=== PATIENT | male | born 1955 | race Caucasian/White ===

== ENCOUNTER → 2016-06-17 | Outpatient (CLI) | payer BC ==
--- NOTE | 2016-06-17 16:37 | CR ---
EXAMINATION: Pelvis and left hip HISTORY: Pain COMPARISON: None TECHNIQUE: AP pelvis and 2 views of the left hip FINDINGS: Left total hip hardware is demonstrated with screw and plate fixation of the left ilium. C lips project over the left pelvis. Periarticular dystrophic calcifications are also noted adjacent t o the left hip. Otherwise no fracture or acute osseous abnormalities demonstrated. Early degenerativ e changes noted within the right hip. SI joints are symmetric. Mild to moderate degenerative changes within the lower lumbar spine. Bone mineralization appears normal. IMPRESSION: 1. Left hip and left ilium hardware noted without acute osseous abnormality.
--- NOTE | 2016-06-17 16:38 | CR ---
EXAMINATION: Right knee HISTORY: Artificial joint COMPARISON: Radiographs dated 07/19/2015 TECHNIQUE: 3 views FINDINGS/IMPRESSION: Right total knee hardware is demonstrated in stable position and alignment. The re is no fracture or acute osseous abnormality noted. Mild persistent postoperative soft tissue rodriguez ges are noted in the small residual joint effusion.
== END ==
LOC: MW.CHORTHO 08:05
PROVIDERS: ATTEND Orthopaedic Surgery
DX: M25.552 Pain in left hip (principal); Z96.651 Presence of right artificial knee joint
CPT/HCPCS: 73501-26-LT; 73501-LT; 73502-26-LT; 73502-LT; 73562-26-RT; 73562-RT

== ENCOUNTER 2017-02-24 09:41 | Day surgery (SDC) | payer BC ==
[~2017-02-24 09:41] MED LIST: Lactated Ringers 1,000 ML IV SCH; Lidocaine 2% 5 ML SDV ONE; Propofol 200 MG/20 ML SDV ONE; fentaNYL 100 MCG/2 ML SDV ONE
--- NOTE | 2017-02-24 11:14 | PCM.PREANE ---
Preanesthetic Assessment - Anesthesia/Transfusion/Family Hx Anesthesia History: Prior Anesthesia Without Reaction Family History of Anesthesia Reaction: No Transfusion History: Prior Transfusion Without Reaction Intubation History: Unknown - Review of Systems General: No Symptoms Pulmonary: No Symptoms Cardiovascular: No Symptoms Gastrointestinal: No Symptoms, Other (screening colonoscopy) Other: Reports: None - Physical Assessment NPO Status Date: 02/22/17 NPO Status Time: 22:00 O2 Sat by Pulse Oximetry: 98 Respiratory Rate: 14 Vital Signs: Last Vital Signs Temp 36.5 C 02/24/17 10:30 Pulse 57 L 02/24/17 10:30 Resp 14 02/24/17 10:30 BP 141/74 H 02/24/17 10:30 Pulse Ox 98 02/24/17 10:30 Height: 1.91 m Weight: 126.099 kg ASA Class: 2 Mental Status: Alert & Oriented x3 Airway Class: Mallampati = 2 Dentition: Reports: Bridge (permanent upper front) Thyro-Mental Finger Breadths: 3 Mouth Opening Finger Breadths: 3 ROM/Head Extension: Full Lungs: Clear to Auscultation, Normal Respiratory Effort Cardiovascular: Regular Rate, Regular Rhythm - Allergies Allergies/Adverse Reactions: Allergies Allergy/AdvReac Type Severity Reaction Status Date / Time No Known Allergies Allergy Verified 07/11/13 10:23 - Blood Blood Available: No - Anesthesia Plan Pre-Op Medication Ordered: None - Acknowledgements Anesthesia Type Planned: MAC Pt an Appropriate Candidate for the Planned Anesthesia: Yes Alternatives and Risks of Anesthesia Discussed w Pt/Guardian: Yes Pt/Guardian Understands and Agrees with Anesthesia Plan: Yes PreAnesthesia Questionnaire - Past Health History Medical/Surgical History: Denies Medical/Surgical History HEENT History: Reports: None Cardiovascular History: Reports: High Cholesterol, Hypertension Respiratory History: Reports: None Genitourinary History: Reports: None Musculoskeletal History: Reports: Arthritis Neurological History: Reports: None Psychiatric History: Reports: None Endocrine/Metabolic History: Reports: Obesity/BMI 30+ Hematologic History: Reports: Blood Transfusion(s) Immunologic History: Reports: None Oncologic (Cancer) History: Reports: Other (See Below) Other Oncologic History: precancerous skin Dermatologic History: Reports: None - Past Surgical History Head Surgeries/Procedures: Reports: None HEENT Surgical History: Reports: LASIK GI Surgical History: Reports: Bariatric Procedure Other GI Surgeries/Procedures: takes prilosec OTC due to having gastric bypass Musculoskeletal Surgical History: Reports: Hip Replacement (left), Knee Replacement (right), Shoulder Surgery - SUBSTANCE USE Smoking Status *Q: Current Every Day Smoker Tobacco Use Within Last Twelve Months: Cigarettes Second Hand Smoke Exposure: Yes Days Per Week of Alcohol Use: 2 Number of Drinks Per Day: 3 Total Drinks Per Week: 6 Recreational Drug Use History: Yes Recreational Drug Type: Reports: Marijuana/Hashish - HOME MEDS Home Medications: Home Meds atorvaSTATin [Lipitor] 20 mg PO DAILY 07/05/15 [History] Aspirin [[place] Aspirin] 81 mg PO DAILY 02/19/17 [History] Omeprazole 20 mg PO DAILY 02/19/17 [History] Triamterene/Hydrochlorothiazid [Triamterene-HCTZ 37.5-25 MG] 1 tab PO DAILY [History] amLODIPine/Benazepril [Lotrel 5-20 MG] 1 tab PO DAILY 02/19/17 [History] - CURRENT (IN HOUSE) MEDS Current Meds: Current Medications Lactated Ringer's (Ringers, Lactated) 1,000 mls @ 125 mls/hr IV ASDIRECTED SANDRA Last Admin: 02/24/17 10:43 Dose: 125 mls/hr Discontinued Medications Fentanyl (Sublimaze) Confirm Administered Dose 100 mcg .ROUTE .STK-MED ONE Stop: 02/24/17 07:30 Lidocaine (Xylocaine-Mpf 2%) Confirm Administered Dose 5 ml .ROUTE .STK-MED ONE Stop: 02/24/17 07:30 Propofol (Diprivan 20 Ml) Confirm Administered Dose 400 mg .ROUTE .STK-MED ONE Stop: 02/24/17 07:30
--- NOTE | 2017-02-24 13:40 | PCM.OPNOTE ---
- General Post-Op/Procedure Note Date of Surgery/Procedure: 02/24/17 Operative Procedure(s): colonoscopy w bx Findings: see dict [id number] Pre Op Diagnosis: scrn colonoscopy Post-Op Diagnosis: colon polyp Anesthesia Technique: Moderate Sedation Primary Surgeon: Jamar Curry Pathology: 3 mm sessile at 90 when scope withdrawn Complications: None Condition: Good Free Text/Narrative:: Intake & Output 02/23/17 02/24/17 02/24/17 22:59 06:59 14:59 Intake Total 1400 Balance 1400
[2017-02-24 13:42] VITALS: BP 104/65
--- NOTE | 2017-02-24 13:48 | PCM.POSTAN ---
POST ANESTHESIA ASSESSMENT - MENTAL STATUS Mental Status: Alert, Oriented - RESPIRATORY Respiratory Status: Respiratory Rate WNL, Airway Patent, O2 Saturation Stable - CARDIOVASCULAR CV Status: Pulse Rate WNL, Blood Pressure Stable - GASTROINTESTINAL GI Status: No Symptoms - POST OP HYDRATION Hydration Status: Adequate & Stable
--- NOTE | 2017-02-24 13:49 | PCM48HPAN ---
Post Anesthesia Note - EVALUATION WITHIN 48HRS OF ANESTHETIC Vital Signs in Normal Range: Yes Patient Participated in Evaluation: Yes Respiratory Function Stable: Yes Airway Patent: Yes Cardiovascular Function Stable: Yes Hydration Status Stable: Yes Pain Control Satisfactory: Yes Nausea and Vomiting Control Satisfactory: Yes Mental Status Recovered: Yes
--- NOTE | 2017-02-24 14:00 | OR ---
SURGEON: Jamar Curry MD DATE OF PROCEDURE: 02/24/2017 PREOPERATIVE DIAGNOSIS: Screening colonoscopy. POSTOPERATIVE DIAGNOSIS: Colon polyp. COMPLICATIONS: None. PROCEDURE PERFORMED: Colonoscopy with biopsy. FINDINGS: 1. The patient is easily sedated with MAINTENANCE MANAGER and Diprivan. The patient is soundly snoring. 2. The patient's bowel prep is left to be desirable. It is acceptable, but the patient has a large amount of opaque coating liquid stool, coating on the mucosa, and compromised study. So, this is a compromised study because of bowel prep. Colon was rather straight forward, cecum indicated by ileocecal fold, one-to-one indentation, and light immittance, appendiceal orifice. Mucosa examined upon scope pulling out with constant irrigation. There was a small 2-3 mm polyp at distance 90 when the scope pulling out. It was removed with cold biopsy forceps. The patient does not have diverticulosis, mass, growth, inflammation, stricture, ulceration, or bleeding. The patient has internal hemorrhoid and no external hemorrhoid. The patient would benefit from a repeat colonoscopy in 3 years from today or if the polyp pathology indicated otherwise or if clinically indicated otherwise. Three-year repeat colonoscopy because of the bowel prep and the colon polyp. PROCEDURE IN DETAIL: The patient was taken to the endoscopy room. A time out was called, patient identified, and procedure identified. Diprivan was then administrated. Patient went from awake to sleep, hearing doctor talking or door closing is normal. Perineum inspection and digital examination were then performed. A well- lubricated colonoscope was gently inserted through the rectum, advanced past the rectosigmoid junction, the descending colon, splenic flexure, transverse colon, hepatic flexure, ascending colon, arrived to the cecum. Cecum was identified as dictated in the finding. Then the scope was carefully withdrawn while attention was paid to the mucosal surface for any abnormality. Air will be sucked out during the scope withdrawal. At the rectum, retroflexed to examine any rectal diseases, fistula or hemorrhoids. During mucosal examination, polyp was noted; picture taken and biopsy performed. Patient tolerated procedure well. There were no intraoperative complications, and Dr. Curry was present throughout the whole procedure. BABATUNDE / OLY /[id number] LILIA
== END 2017-02-24 13:20 | disposition home or self-care (01) ==
LOC: MW.SDS 09:41
PROVIDERS: ATTEND Surgery
DX: Z12.11 Encounter for screening for malignant neoplasm of colon (principal); K63.5 Polyp of colon; K64.8 Other hemorrhoids; I10 Essential (primary) hypertension; E78.00 Pure hypercholesterolemia, unspecified; Z96.651 Presence of right artificial knee joint; Z79.82 Long term (current) use of aspirin; Z79.899 Other long term (current) drug therapy; F17.210 Nicotine dependence, cigarettes, uncomplicated; Z98.84 Bariatric surgery status
CPT/HCPCS: 45380; 88305; J3010; J7120; 00810; J2704

== ENCOUNTER 2019-04-04 18:15 | Inpatient (IN) | payer BC ==
--- NOTE | 2019-04-04 19:10 | CR ---
INDICATION: Fall TECHNIQUE: AP pelvis and two views left hip COMPARISON: None FINDINGS: Bones: Alignment is normal. No fractures. Heterotopic bone formation adjacent to the greater trochanter. Joint spaces: Left hip arthroplasty Soft tissues: Unremarkable. IMPRESSION: Negative. Dictated by Tyson Parr MD @ 04/04/2019 7:09:55 PM Dictated by: Tyson Parr MD @ 04/04/2019 19:09:59 (Electronically Signed)
[2019-04-04] MEDS ORDERED: HYDROmorphone 1 MG/ML Syringe IM ONE (19:32)
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
[2019-04-04] MEDS ORDERED: HYDROmorphone 1 MG/ML Syringe IVPUSH ONE (20:37)
[2019-04-04] MEDS: Sodium Chloride 0.9% 1,000 ML IV SCH (20:45)
[2019-04-04 23:05] LABS: BLOOD UREA NITROGEN,BUN 13 mg/dL (7.0-18.0); CARBON DIOXIDE,CO2 23.7 mmol/L (21.0-32.0); CHLORIDE,CL 102 mmol/L (98-107); GLUCOSE RANDOM 154 mg/dL (74-106); POTASSIUM,K 4.4 mmol/L (3.5-5.1); SODIUM,NA 137 mmol/L (136-148)
[2019-04-04] MEDS: Acetaminophen/HYDROcodone 325-5 MG Tab PO PRN (23:46)
[2019-04-05] MEDS: Acetaminophen/HYDROcodone 325-5 MG Tab PO PRN ×5 (04:39→23:08)
[2019-04-05] MEDS: Sodium Chloride 0.9% 1,000 ML IV SCH (07:05)
[2019-04-05] MEDS: Famotidine 20 MG Tab PO SCH (08:03)
[2019-04-05] MEDS: Aspirin 325 MG Tab PO SCH (08:03)
[2019-04-05] MEDS ORDERED: Hydrochlorothiazide/Triamterene 25-37.5 Tab PO SCH ×2 (09:00→14:33)
[2019-04-05] MEDS ORDERED: TRIAMTERENE PO SCH (11:15)
[2019-04-05] MEDS ORDERED: HCTZ PO SCH (11:15)
[2019-04-05] MEDS ORDERED: Non-Formulary Medication 1 Each (Amlodipine Besylate/Benazepril [Amlodipine-Benazepril 10- PO SCH (11:15)
[2019-04-05] MEDS: traMADol 50 MG Tab PO PRN (11:28)
[2019-04-05] MEDS: Amiodarone 200 MG Tab PO SCH ×2 (11:29→23:06)
[2019-04-05] MEDS: Metoprolol Tartrate 50 MG Tab PO SCH ×2 (11:30→23:06)
[2019-04-05] MEDS: Apixaban 5 MG Tab PO SCH ×2 (11:30→23:05)
[2019-04-05] MEDS ORDERED: Albuterol 8 GM Inhaler INH SCH (12:00)
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
[2019-04-05] MEDS: Cyclobenzaprine 10 MG Tab PO PRN (14:15)
[2019-04-05] MEDS: amLODIPine 5 MG Tab PO SCH (15:13)
[2019-04-05] MEDS: Hydrochlorothiazide/Triamterene 25-37.5 Tab PO SCH (15:14)
[2019-04-05] MEDS: Benazepril 10 MG Tab PO SCH (15:14)
[2019-04-06] MEDS: Acetaminophen/HYDROcodone 325-5 MG Tab PO PRN ×3 (04:09→15:15)
[2019-04-06] MEDS: Cyclobenzaprine 10 MG Tab PO PRN (06:26)
[2019-04-06] MEDS: Aspirin 325 MG Tab PO SCH (08:03)
[2019-04-06] MEDS: Benazepril 10 MG Tab PO SCH (08:04)
[2019-04-06] MEDS: amLODIPine 5 MG Tab PO SCH (08:04)
[2019-04-06] MEDS: Metoprolol Tartrate 50 MG Tab PO SCH ×2 (08:04→20:56)
[2019-04-06] MEDS: Famotidine 20 MG Tab PO SCH (08:05)
[2019-04-06] MEDS: Amiodarone 200 MG Tab PO SCH ×2 (08:05→20:57)
[2019-04-06] MEDS: Hydrochlorothiazide/Triamterene 25-37.5 Tab PO SCH (08:05)
[2019-04-06] MEDS: Apixaban 5 MG Tab PO SCH ×2 (08:05→20:56)
[2019-04-06] MEDS: traMADol 50 MG Tab PO PRN ×2 (10:06→20:57)
[2019-04-06] MEDS ORDERED: Ibuprofen 800 MG Tab PO SCH (10:30)
--- NOTE | 2019-04-06 13:21 | PCM.SN ---
- Free Text/Narrative Note: Ortho Note Patient is 63 year old male with left periprosthetic femoral shaft fracture below stem tip of left MAGGY. Minimally displaced. Discussed non-operative vs operative treatment of fracture. Given fracture is well aligned and surgery will NOT allow weight bearing, I have recommended non-operative management and patient and spouse agree. Patient shoulder be toe touch weight bearing for 8 weeks with walker/crutches. Flexeril and hydrocodone every 6 hours scheduled and stagger doses every 3 hours . I have recommended home PT after discharge and patient agrees. Plan discharge to home tomorrow after seeing PT. All questions answered.
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
[2019-04-06] MEDS: Cyclobenzaprine 10 MG Tab PO SCH (17:47)
[2019-04-07] MEDS: Cyclobenzaprine 10 MG Tab PO SCH ×4 (00:09→18:10)
[2019-04-07] MEDS: traMADol 50 MG Tab PO PRN ×4 (03:08→20:39)
--- NOTE | 2019-04-07 08:51 | PCM.CONSN ---
- General Info Date of Service: 04/07/19 Admission Dx/Problem (Free Text): Admission Diagnosis/Problem Admission Diagnosis/Problem Fracture of femur Subjective Update: Doing well this morning, no chest pain or SOB. reports pain to leg with movement and getting up. Denies signs of bleeding. Functional Status: Reports: Tolerating Diet, Urinating - Review of Systems General: Reports: No Symptoms HEENT: Reports: No Symptoms Pulmonary: Reports: No Symptoms. Denies: Shortness of Breath Cardiovascular: Reports: No Symptoms. Denies: Chest Pain Gastrointestinal: Reports: No Symptoms. Denies: Abdominal Pain, Nausea, Vomiting Musculoskeletal: Reports: Leg Pain Skin: Reports: No Symptoms Neurological: Reports: No Symptoms Psychiatric: Reports: No Symptoms - Patient Data Vitals - Most Recent: Last Vital Signs Temp 97.4 F 04/07/19 07:00 Pulse 96 04/07/19 07:00 Resp 18 04/07/19 07:00 BP 105/69 04/07/19 07:00 Pulse Ox 96 04/07/19 07:00 Weight - Most Recent: 136.078 kg I&O - Last 24 Hours: Intake & Output 04/06/19 04/07/19 04/07/19 22:59 06:59 14:59 Intake Total 1250 800 Output Total 1400 500 Balance -150 300 Med Orders - Current: Current Medications Hydrocodone Bitart/Acetaminophen ([place] 325-5 Mg) 1 tab PO Q4H PRN PRN Reason: Pain Last Admin: 04/06/19 15:15 Dose: 1 tab Amiodarone HCl (Cordarone) 200 mg PO BID [facility] Last Admin: 04/06/19 20:57 Dose: 200 mg Amlodipine Besylate (Norvasc) 10 mg PO DAILY [facility] Last Admin: 04/06/19 08:04 Dose: 10 mg Apixaban (Eliquis) 5 mg PO BID [facility] Last Admin: 04/06/19 20:56 Dose: 5 mg Benazepril HCl (Lotensin) 20 mg PO DAILY [facility] Last Admin: 04/06/19 08:04 Dose: 20 mg Cyclobenzaprine HCl (Flexeril) 10 mg PO QID [facility] Last Admin: 04/07/19 06:05 Dose: 10 mg Famotidine (Pepcid) 40 mg PO DAILY [facility] Last Admin: 04/06/19 08:05 Dose: 40 mg Metoprolol Tartrate (Lopressor) 50 mg PO BID [facility] Last Admin: 04/06/19 20:56 Dose: 50 mg Tramadol HCl (Ultram) 100 mg PO Q6H PRN PRN Reason: Pain Last Admin: 04/07/19 03:08 Dose: 100 mg Triamterene/HCTZ (Maxzide 25-37.5 Mg) 1 each PO DAILY [facility] Last Admin: 04/06/19 08:05 Dose: 1 each Discontinued Medications Hydrocodone Bitart/Acetaminophen ([place] 325-5 Mg) 1 tab PO Q3H PRN PRN Reason: Pain Last Admin: 04/05/19 08:03 Dose: 1 tab Albuterol (Ventolin Hfa) 0 gm INH Q6H [facility] Last Admin: 04/05/19 14:51 Dose: Not Given Aspirin (Aspirin) 325 mg PO DAILY [facility] Last Admin: 04/06/19 08:03 Dose: 325 mg Cyclobenzaprine HCl (Flexeril) 10 mg PO TID PRN PRN Reason: Spasms Last Admin: 04/06/19 06:26 Dose: 10 mg Hydromorphone HCl (Dilaudid) 1 mg IM ONETIME ONE Stop: 04/04/19 19:33 Last Admin: 04/04/19 19:40 Dose: 1 mg Hydromorphone HCl (Dilaudid) 1 mg IVPUSH ONETIME ONE Stop: 04/04/19 20:38 Last Admin: 04/04/19 20:48 Dose: 1 mg Sodium Chloride (Normal Saline) 1,000 mls @ 100 mls/hr IV ASDIRECTED [facility] Last Admin: 04/05/19 07:05 Dose: 100 mls/hr Ibuprofen (Motrin) 800 mg PO Q6H [facility] Last Admin: 04/06/19 10:38 Dose: 800 mg Non-Formulary Medication (Amlodipine Besylate/Benazepril [Amlodipine-Benazepril 10-20 Mg]) 1 each PO DAILY [facility] Last Admin: 04/05/19 14:30 Dose: Not Given Non-Formulary Medication (Hctz/Triamterene) 1 tab PO DAILY [facility] Last Admin: 04/05/19 14:30 Dose: Not Given Triamterene/HCTZ (Maxzide 25-37.5 Mg) 1 each PO DAILY [facility] Triamterene/HCTZ (Maxzide 25-37.5 Mg) 1 each PO DAILY [facility] Last Admin: 04/05/19 14:51 Dose: Not Given - Exam Quality Assessment: No: Supplemental Oxygen General: Alert, Oriented, Cooperative, No Acute Distress Lungs: Clear to Auscultation, Normal Respiratory Effort Cardiovascular: Regular Rate, No Murmurs, Irregular Rhythm. No: Tachycardia Extremities: Normal Inspection, No Pedal Edema, Normal Capillary Refill Neurological: No New Focal Deficit Psy/Mental Status: Alert, Normal Affect, Normal Mood Sepsis Event Note - Evaluation Sepsis Screening Result: No Definite Risk - Focused Exam Vital Signs: Vital Signs Temp Pulse Pulse Resp BP BP Pulse Ox 04/07/19 07:00 97.4 F 96 18 105/69 96 04/07/19 03:00 97.5 F 84 18 106/68 96 04/06/19 23:47 97.1 F 69 18 107/70 95 04/06/19 20:56 90 102/67 Date Exam was Performed: 04/07/19 Time Exam was Performed: 09:59 Consult PN Assessment/Plan Procedures: Procedures ASSAY OF PSA TOTAL (01/05/19) CAT SCAN FOLLOW-UP STUDY (03/13/17) COLONOSCOPY AND BIOPSY (02/24/17) ELECTRICAL STIMULATION (06/22/17) EMERGENCY DEPT VISIT (03/02/15) EMERGENCY DEPT VISIT (07/11/13) MRI JNT OF LWR EXTRE W/O DYE (06/01/15) PT EVAL LOW COMPLEX 20 MIN (06/01/17) PT EVALUATION (08/01/15) ROUTINE VENIPUNCTURE (01/05/19) RPR S/N/AX/GEN/TRNK 2.5CM/< (03/02/15) TDAP VACCINE 7 YRS/> IM (03/02/15) THER/PROPH/DIAG INJ SC/IM (07/11/13) THERAPEUTIC EXERCISES (07/14/17) TISSUE EXAM BY PATHOLOGIST (02/24/17) URINALYSIS AUTO W/SCOPE (11/22/18) VASOPNEUMATIC DEVICE THERAPY (06/01/17) X-RAY EXAM HIP UNI 1 VIEW (06/17/16) X-RAY EXAM HIP UNI 2-3 VIEWS (06/17/16) X-RAY EXAM KNEE 4 OR MORE (05/08/15) X-RAY EXAM OF KNEE 3 (06/17/16) X-RAY EXAM OF SHOULDER (08/25/17) (1) Femoral fracture SNOMED Code(s): 85261172 Code(s): S72.90XA - UNSP FRACTURE OF UNSP FEMUR, INIT ENCNTR FOR CLOSED FRACTURE Current Visit: Yes Qualifiers: Fracture type: closed (2) Fall SNOMED Code(s): 0747512, 498182511 Code(s): W19.XXXA - UNSPECIFIED FALL, INITIAL ENCOUNTER Current Visit: Yes (3) Atrial fibrillation SNOMED Code(s): 22856021 Code(s): I48.91 - UNSPECIFIED ATRIAL FIBRILLATION Current Visit: Yes (4) Anticoagulation adequate SNOMED Code(s): 844223575, 841078503 Code(s): Z79.01 - HALFWAY (CURRENT) USE OF ANTICOAGULANTS Current Visit: Yes Problem List Initiated/Reviewed/Updated: Yes Plan: This 63 year old male s/p fall with femur fracture and admitted for pain control 1. Femur fracture: Per Orthopedics 2. Atrial fibrillation: Stable, continue Amiodarone and Metoprolol. HR in 70- 80s. Regular to auscultation. No chest pain or SOB. Continue Eliquis as well. Has Cardiology Follow up next week in [place].
[2019-04-07] MEDS: Benazepril 10 MG Tab PO SCH (09:18)
[2019-04-07] MEDS: Apixaban 5 MG Tab PO SCH ×2 (09:18→20:39)
[2019-04-07] MEDS: Famotidine 20 MG Tab PO SCH (09:19)
[2019-04-07] MEDS: Amiodarone 200 MG Tab PO SCH ×2 (09:19→20:38)
[2019-04-07] MEDS: amLODIPine 5 MG Tab PO SCH (09:19)
[2019-04-07] MEDS: Hydrochlorothiazide/Triamterene 25-37.5 Tab PO SCH (09:19)
[2019-04-07] MEDS: Metoprolol Tartrate 50 MG Tab PO SCH ×2 (09:20→20:38)
--- NOTE | 2019-04-07 09:47 | PCM.SN ---
- Free Text/Narrative Note: S: Robert reports doing better at times, such as when he ambulated to the bathroom with PT yesterday (standby assistance with his walker), and had more difficulty getting OOB this morning with PT. States he has no pain at rest, but the addition of Flexeril has been beneficial in alleviating his acute muscle spasms that occur with transferring. Gore does not provide him any better pain relief, just makes him sleepy, and finds that taking Flexeril alternating with Ultram is beneficial. Has continued swelling to left thigh. Using Polar Care Ice therapy with relief. No calf erythema, pain or swelling to LE. Has been working with social work manager in regards to equipment needed upon discharge, and requests Rx for lift chair and toilet seat riser. Feels he does not need crutches or a wheelchair, and has walker at home already. O: Alert and orientated, in no acute distress. Afebrile. Laying in bed. Nursing present to reapply SCDs. PP2+ No pitting edema to LLE. Generalized swelling to left thigh. No ecchymosis. Sensation grossly intact to LLE. Polar care ice pad to left thigh. Easy respiratory rate. No N/V. A: Left periprosthetic hip fracture Acute pain with muscle spasms. P: Robert feels ready for discharge later today. Discussed routine use of Flexeril 10mg every 6 hours, supplementing either Ultram or Gore in between pending the level of his pain (which will depend on his activities at home). Medical equipment needed for discharge : toilet seat riser and lift chair. He will be discharged with home care for Physical therapy and nursing assessment of pain control. Also advised use of compression socks at home, on am/off hs, to prevent LE edema and as a DVT prophylaxis. Robert had no additional questions.
[2019-04-07] MEDS: Acetaminophen/HYDROcodone 325-5 MG Tab PO PRN (13:44)
[2019-04-08] MEDS: Cyclobenzaprine 10 MG Tab PO SCH ×3 (00:08→11:35)
[2019-04-08] MEDS: traMADol 50 MG Tab PO PRN ×3 (03:12→14:12)
--- NOTE | 2019-04-08 07:53 | PCM.SN ---
- Free Text/Narrative Note: S: Robert did not do well with PT yesterday afternoon with limited ambulation. He was changed from observation to inpatient. This morning, he states yesterday evening and last night went better. He was up in the chair for supper and is ready to call for standby assistance to get OOB for breakfast. He was up twice last night and ambulated to the bathroom. Lift Chair was delievered to his house last night. Afebrile. VSS. Pain is manageable with muscle relaxer, augmenting Ultram in between. With the progress overnight, he feels ready to be discharged home today after PT reviews steps today (he has 1 step to get into his house). O: Alert/orientated, in no acute distress. PP2+ Normal respiratory pattern. NV exam to LLE normal. Sensation grossly intact to LLE. A: Periprosthetic hip fracture, left Observation to inpatient admission for pain control P: Robert feels ready for discharge today. Continue routine use of muscle relaxer, with Ultram or Percocet augmented inbetween as needed for pain control. He will be discharged home with home care for continued strengthening.
[2019-04-08] MEDS: Famotidine 20 MG Tab PO SCH (08:49)
[2019-04-08] MEDS: Apixaban 5 MG Tab PO SCH (08:49)
[2019-04-08] MEDS: Amiodarone 200 MG Tab PO SCH (08:50)
[2019-04-08] MEDS: Hydrochlorothiazide/Triamterene 25-37.5 Tab PO SCH (08:50)
[2019-04-08] MEDS: Metoprolol Tartrate 50 MG Tab PO SCH ×2 (08:57→10:33)
[2019-04-08] MEDS: amLODIPine 5 MG Tab PO SCH ×2 (08:58→10:34)
[2019-04-08] MEDS: Benazepril 10 MG Tab PO SCH ×2 (08:58→10:32)
[2019-04-08 10:36] VITALS: BP 108/65; PULSE 105
--- NOTE | 2019-04-08 11:09 | PCM.CONSN ---
- General Info Date of Service: 04/08/19 Admission Dx/Problem (Free Text): Admission Diagnosis/Problem Admission Diagnosis/Problem Fracture of femur, LEFT periprosthetic hip fracture Subjective Update: Reports doing well this morning, hoping for home later today. No chest pain or SOB. Functional Status: Reports: Pain Controlled, Tolerating Diet - Review of Systems General: Reports: No Symptoms. Denies: Weakness, Fatigue HEENT: Reports: No Symptoms. Denies: Sore Throat, Visual Changes Pulmonary: Reports: No Symptoms. Denies: Shortness of Breath Cardiovascular: Reports: No Symptoms. Denies: Chest Pain Gastrointestinal: Reports: No Symptoms. Denies: Abdominal Pain, Nausea, Vomiting Genitourinary: Reports: No Symptoms. Denies: Dysuria, Frequency Skin: Reports: No Symptoms Neurological: Reports: No Symptoms Psychiatric: Reports: No Symptoms - Patient Data Vitals - Most Recent: Last Vital Signs Temp 98.9 F 04/08/19 07:15 Pulse 105 H 04/08/19 10:33 Resp 16 04/08/19 07:15 BP 108/65 04/08/19 10:34 Pulse Ox 96 04/08/19 07:15 Weight - Most Recent: 136.078 kg I&O - Last 24 Hours: Intake & Output 04/07/19 04/08/19 04/08/19 22:59 06:59 14:59 Intake Total 2300 500 Output Total 1300 250 Balance 1000 250 Med Orders - Current: Current Medications Hydrocodone Bitart/Acetaminophen ([place]onda 325-5 Mg) 1 tab PO Q4H PRN PRN Reason: Pain Last Admin: 04/07/19 13:44 Dose: 1 tab Amiodarone HCl (Cordarone) 200 mg PO BID [facility] Last Admin: 04/08/19 08:50 Dose: 200 mg Amlodipine Besylate (Norvasc) 10 mg PO DAILY [facility] Last Admin: 04/08/19 10:34 Dose: 10 mg Apixaban (Eliquis) 5 mg PO BID [facility] Last Admin: 04/08/19 08:49 Dose: 5 mg Benazepril HCl (Lotensin) 20 mg PO DAILY [facility] Last Admin: 04/08/19 10:32 Dose: 20 mg Cyclobenzaprine HCl (Flexeril) 10 mg PO QID [facility] Last Admin: 04/08/19 06:08 Dose: 10 mg Famotidine (Pepcid) 40 mg PO DAILY [facility] Last Admin: 04/08/19 08:49 Dose: 40 mg Metoprolol Tartrate (Lopressor) 50 mg PO BID [facility] Last Admin: 04/08/19 10:33 Dose: 50 mg Tramadol HCl (Ultram) 100 mg PO Q6H PRN PRN Reason: Pain Last Admin: 04/08/19 08:51 Dose: 100 mg Triamterene/HCTZ (Maxzide 25-37.5 Mg) 1 each PO DAILY [facility] Last Admin: 04/08/19 08:50 Dose: 1 each Discontinued Medications Hydrocodone Bitart/Acetaminophen ([place] 325-5 Mg) 1 tab PO Q3H PRN PRN Reason: Pain Last Admin: 04/05/19 08:03 Dose: 1 tab Albuterol (Ventolin Hfa) 0 gm INH Q6H [facility] Last Admin: 04/05/19 14:51 Dose: Not Given Aspirin (Aspirin) 325 mg PO DAILY [facility] Last Admin: 04/06/19 08:03 Dose: 325 mg Cyclobenzaprine HCl (Flexeril) 10 mg PO TID PRN PRN Reason: Spasms Last Admin: 04/06/19 06:26 Dose: 10 mg Hydromorphone HCl (Dilaudid) 1 mg IM ONETIME ONE Stop: 04/04/19 19:33 Last Admin: 04/04/19 19:40 Dose: 1 mg Hydromorphone HCl (Dilaudid) 1 mg IVPUSH ONETIME ONE Stop: 04/04/19 20:38 Last Admin: 04/04/19 20:48 Dose: 1 mg Sodium Chloride (Normal Saline) 1,000 mls @ 100 mls/hr IV ASDIRECTED [facility] Last Admin: 04/05/19 07:05 Dose: 100 mls/hr Ibuprofen (Motrin) 800 mg PO Q6H [facility] Last Admin: 04/06/19 10:38 Dose: 800 mg Non-Formulary Medication (Amlodipine Besylate/Benazepril [Amlodipine-Benazepril 10-20 Mg]) 1 each PO DAILY [facility] Last Admin: 04/05/19 14:30 Dose: Not Given Non-Formulary Medication (Hctz/Triamterene) 1 tab PO DAILY [facility] Last Admin: 04/05/19 14:30 Dose: Not Given Triamterene/HCTZ (Maxzide 25-37.5 Mg) 1 each PO DAILY [facility] Triamterene/HCTZ (Maxzide 25-37.5 Mg) 1 each PO DAILY [facility] Last Admin: 04/05/19 14:51 Dose: Not Given - Exam General: Alert, Oriented, Cooperative, No Acute Distress Lungs: Clear to Auscultation, Normal Respiratory Effort Cardiovascular: Regular Rate, Irregular Rhythm GI/Abdominal Exam: Normal Bowel Sounds, Soft, Non-Tender Neurological: No New Focal Deficit Psy/Mental Status: Alert, Normal Affect, Normal Mood Sepsis Event Note - Evaluation Sepsis Screening Result: No Definite Risk - Focused Exam Vital Signs: Vital Signs Temp Pulse Pulse Resp BP BP Pulse Ox 04/08/19 10:34 108/65 04/08/19 10:33 105 H 108/65 04/08/19 10:32 108/65 04/08/19 08:58 115/62 04/08/19 08:57 122 H 115/62 04/08/19 07:15 98.9 F 92 16 111/72 96 04/08/19 03:00 97.1 F 86 18 97/67 96 Date Exam was Performed: 04/08/19 Time Exam was Performed: 11:07 Consult PN Assessment/Plan Procedures: Procedures ASSAY OF PSA TOTAL (01/05/19) CAT SCAN FOLLOW-UP STUDY (03/13/17) COLONOSCOPY AND BIOPSY (02/24/17) ELECTRICAL STIMULATION (06/22/17) EMERGENCY DEPT VISIT (03/02/15) EMERGENCY DEPT VISIT (07/11/13) MRI JNT OF LWR EXTRE W/O DYE (06/01/15) PT EVAL LOW COMPLEX 20 MIN (06/01/17) PT EVALUATION (08/01/15) ROUTINE VENIPUNCTURE (01/05/19) RPR S/N/AX/GEN/TRNK 2.5CM/< (03/02/15) TDAP VACCINE 7 YRS/> IM (03/02/15) THER/PROPH/DIAG INJ SC/IM (07/11/13) THERAPEUTIC EXERCISES (07/14/17) TISSUE EXAM BY PATHOLOGIST (02/24/17) URINALYSIS AUTO W/SCOPE (11/22/18) VASOPNEUMATIC DEVICE THERAPY (06/01/17) X-RAY EXAM HIP UNI 1 VIEW (06/17/16) X-RAY EXAM HIP UNI 2-3 VIEWS (06/17/16) X-RAY EXAM KNEE 4 OR MORE (05/08/15) X-RAY EXAM OF KNEE 3 (06/17/16) X-RAY EXAM OF SHOULDER (08/25/17) (1) Femoral fracture SNOMED Code(s): 87984714 Code(s): S72.90XA - UNSP FRACTURE OF UNSP FEMUR, INIT ENCNTR FOR CLOSED FRACTURE Current Visit: Yes Qualifiers: Fracture type: closed (2) Fall SNOMED Code(s): 0497774, 346116583 Code(s): W19.XXXA - UNSPECIFIED FALL, INITIAL ENCOUNTER Current Visit: Yes (3) Atrial fibrillation SNOMED Code(s): 48063676 Code(s): I48.91 - UNSPECIFIED ATRIAL FIBRILLATION Current Visit: Yes (4) Anticoagulation adequate SNOMED Code(s): 401634030, 180857796 Code(s): Z79.01 - LONG-TERM (CURRENT) USE OF ANTICOAGULANTS Current Visit: Yes Problem List Initiated/Reviewed/Updated: Yes Plan: This 63 year old male s/p fall with femur fracture and admitted for pain control 1. Femur fracture: Per Orthopedics 2. Atrial fibrillation: Stable, continue Amiodarone and Metoprolol. HR in 70- 80s. Regular to auscultation. No chest pain or SOB. Continue Eliquis as well. Has Cardiology Follow up next week in [place].
[2019-04-08] MEDS: Acetaminophen/HYDROcodone 325-5 MG Tab PO PRN (11:35)
--- NOTE | 2019-04-08 12:45 | PCM.SN ---
- Free Text/Narrative Note: Ortho Note Pain management improved. Cleared by PT for discharge. Has 1 step into home and then on one level. I recommend building small ramp YONATHAN and he thinks that can be done. PT will see him again this afternoon and then he should be ready for DC. DC orders and prescriptions ready. Follow-up with me week of April 18-.
== END 2019-04-08 15:10 | disposition home health service (06) | DRG 340 ==
LOC: MW.ED 18:15 → MW.MS 21:39 → OBSVTOIN 04-07 17:16 → MW.MS 04-07 17:18
PROVIDERS: ADMIT Orthopaedic Surgery; ATTEND Orthopaedic Surgery
DX: S72.112A Displaced fracture of greater trochanter of left femur, initial encounter for closed fracture (principal); M97.02XA Periprosthetic fracture around internal prosthetic left hip joint, initial encounter; W00.0XXA Fall on same level due to ice and snow, initial encounter; Z96.642 Presence of left artificial hip joint; I48.91 Unspecified atrial fibrillation; E78.00 Pure hypercholesterolemia, unspecified; I10 Essential (primary) hypertension; M17.9 Osteoarthritis of knee, unspecified; E66.9 Obesity, unspecified; Z96.659 Presence of unspecified artificial knee joint; Z79.82 Long term (current) use of aspirin; Z87.891 Personal history of nicotine dependence; Z79.01 Long term (current) use of anticoagulants
CPT/HCPCS: 36415; 73502-26-LT; 73502-LT; 80053; 85025; 93005; 97162-GP; 97530-GP; 99284-25; A9270-GY; J1170; J7030

== ENCOUNTER 2019-04-13 11:40 | Emergency (ER) | payer BC ==
[2019-04-13 13:17] VITALS: BP 124/90; PULSE 102
--- NOTE | 2019-04-13 13:32 | CT ---
Head CT Technique: Multiple axial sections through the brain were obtained. Intravenous contrast was not utilized. Comparison: No previous intracranial imaging is available. Findings: Ventricles along with basal cisterns and sulci over convexities are mildly prominent. No abnormal parenchymal densities are seen. No evidence of intracranial hemorrhage. No midline shift or mass effect is seen. Bone window settings were reviewed. No acute calvarial abnormality. Visualized mastoid sinuses are clear. Small retention cyst is noted within the inferior right maxillary sinus measuring 1 cm. Other visualized sinuses show nothing acute. Impression: 1. Mild generalized atrophy. Incidental sinus finding. 2. Nothing acute is appreciated on noncontrast head CT exam. Diagnostic code #2 This report was dictated in [place] Standard Time
[2019-04-13 13:50] LABS: BLOOD UREA NITROGEN,BUN 16 mg/dL (7.0-18.0); CARBON DIOXIDE,CO2 26.1 mmol/L (21.0-32.0); CHLORIDE,CL 97 mmol/L (98-107); GLUCOSE RANDOM 91 mg/dL (74-106); SODIUM,NA 137 mmol/L (136-148)
[2019-04-13] MEDS ORDERED: Acetaminophen 325 MG Tab PO ONE (13:57)
[2019-04-13] MEDS ORDERED: Potassium Chloride 10% 20 MEQ/15 ML Soln 30 ML UD Cup PO ONE (14:04)
--- NOTE | 2019-04-13 14:57 | EDM.PDOCBH ---
ED [facility] GENERAL MEDICAL PROBLEM - General Chief Complaint: Behavioral/Psych Stated Complaint: HALLUCINATIONS/PAIN Time Seen by Provider: 04/13/19 14:56 Source of Information: Reports: Patient, Family History Limitations: Reports: No Limitations - History of Present Illness INITIAL COMMENTS - FREE TEXT/NARRATIVE: Patient is a 63-year-old male with a past medical history of hypertension, obesity, recent femur fracture presenting with a chief complaint of hallucinations. Per the patient and his , he has been in experiencing intermittent hallucinations for the past week or 2. Patient has experienced audio, visual, tactile hallucinations and some episodic confusion. There is an episode today where he experienced a large beetle crawling underneath his big toe. The has been there for some of his hallucinations and is tried to help throat however there does not seem to be a clear-cut cause of his hallucinations. His only new medication is cyclobenzaprine which was stopped 2 days ago after concerns that they may have been causing his hallucinations. Otherwise, he patient has not been ill, experiencing fevers, headache, head injury, or any other concerns. His only other main complaint is he does experience intermittent severe left hip pain related to his fracture which is treated with hydrocodone. In addition to that documented in the HPI above, the additional ROS was obtained : Constitutional: Denies fevers or chills Eyes: Denies vision changes ENMT: Denies sore throat CV: Denies chest pain Resp: Denies SOB GI: Denies vomiting or diarrhea : Denies painful urination MSK: Denies recent trauma Skin: Denies new rashes Neuro: Denies new numbness or tingling or weakness Endocrine: Denies unexpected weight loss Heme: Denies bleeding disorders I have reviewed the triage vital signs Const: Well nourished, well developed, appears stated age Eyes: PERRL, no conjunctival injection HENT: NCAT, Neck supple without meningismus CV: RRR, Warm, well-perfused extremities RESP: CTAB, Unlabored respiratory effort GI: soft, non-tender, non-distended, no masses MSK: No gross deformities appreciated Skin: Warm, dry. No rashes Neuro: Alert, billboard poster II-XII grossly intact. Sensation and motor function of extremities grossly intact. Psych: Appropriate mood and affect Assessment and plan Patient is a 63-year-old male who presents with a chief complaint of auditory and visual hallucinations. Patient had thorough metabolic, toxic, and neurologic, psych psychiatric work-up. Considered in differential for electrolyte abnormalities and toxins. Lab tests were within normal limits. Patient had normal neurologic exam and was not hallucinating while in the emergency department. Also under consideration was meningitis and encephalitis , however given the patient's lack of fever, elevated white count, meningeal signs is much less likely that this is the case. Patient also evaluated psychiatrically and does not endorse any symptoms consistent with psychosis or being a danger to himself or anyone else. It is noted, the patient has been recently stopped on cyclobenzaprine which in rare cases can cause hallucinations and confusion. At this time, the patient has normal mental status and no evidence of emergent cause of these hallucinations, patient will be referred to outpatient follow-up and instructed to stop taking cyclobenzaprine and to return to the emergency department immediately for high fevers, unresolved hallucinations, any other concerns. Patient and agree with plan. Russians were addressed and answered at time of discharge. Left Leg Pain Score (Numeric/FACES): 8 - Related Data Allergies Allergy/AdvReac Type Severity Reaction Status Date / Time No Known Allergies Allergy Verified 04/13/19 11:56 Home Meds: Home Meds atorvaSTATin [Lipitor] 20 mg PO DAILY 07/05/15 [History] Aspirin [[place] Aspirin EC] 81 mg PO DAILY 02/19/17 [History] Triamterene/Hydrochlorothiazid [Triamterene-HCTZ 37.5-25 MG] 1 tab PO DAILY [History] Amiodarone [Cordarone] 200 mg PO BID 04/05/19 [History] Apixaban [Eliquis] 5 mg PO BID 04/05/19 [History] Famotidine [Pepcid] 40 mg PO DAILY tablet 04/05/19 [Rx] Metoprolol Tartrate 50 mg PO BID 04/05/19 [History] amLODIPine Besylate/Benazepril [Amlodipine-Benazepril 10-20 mg] 1 each PO DAILY 04/05/19 [History] Benazepril [Lotensin] 20 mg PO DAILY tablet 04/07/19 [Rx] HCTZ/Triamterene [Maxzide 25-37.5 MG] 1 each PO DAILY tablet 04/07/19 [Rx] amLODIPine [Norvasc] 10 mg PO DAILY tablet 04/07/19 [Rx] traMADol [Ultram] 100 mg PO Q6H PRN #60 tablet 04/07/19 [Rx] Past Medical History - Past Health History Medical/Surgical History: Denies Medical/Surgical History HEENT History: Reports: None Cardiovascular History: Reports: Afib, High Cholesterol, Hypertension Respiratory History: Reports: None Gastrointestinal History: Reports: Other (See Below) Genitourinary History: Reports: None Musculoskeletal History: Reports: Arthritis, Other (See Below) Other Musculoskeletal History: shoulder and knee arthitis Neurological History: Reports: None Psychiatric History: Reports: None Endocrine/Metabolic History: Reports: Obesity/BMI 30+ Hematologic History: Reports: Blood Transfusion(s) Immunologic History: Reports: None Oncologic (Cancer) History: Reports: Other (See Below) Other Oncologic History: precancerous skin Dermatologic History: Reports: Other (See Below) Other Dermatologic History: suspicious mole removal - Infectious Disease History Infectious Disease History: Reports: Chicken Pox - Past Surgical History Head Surgeries/Procedures: Reports: None HEENT Surgical History: Reports: LASIK GI Surgical History: Reports: Bariatric Procedure Other GI Surgeries/Procedures: takes prilosec OTC due to having gastric bypass Musculoskeletal Surgical History: Reports: Hip Replacement, Knee Replacement, Shoulder Surgery Dermatological Surgical History: Reports: Skin Biopsy Social & Family History - Family History Family Medical History: Noncontributory Endocrine/Metabolic: Reports: Diabetes, type II Other Endocrine/Metabolic Family History: Maternal side of [facility] family Oncologic: Reports: Lung Other Oncologic Family History: Paternal - Tobacco Use Smoking Status *Q: Former Smoker Used Tobacco, but Quit: Yes Month/Year Tobacco Last Used: 2018 - Caffeine Use Caffeine Use: Reports: None - Recreational Drug Use Recreational Drug Use: No ED ROS GENERAL - Review of Systems Review Of Systems: See Below ED EXAM, BEHAVIORAL HEALTH - Physical Exam Exam: See Below COURSE, BEHAVIORAL HEALTH COMP - Course Vital Signs: Last Vital Signs Temp 36.5 C 04/13/19 11:59 Pulse 102 H 04/13/19 13:17 Resp 20 04/13/19 11:59 BP 124/90 04/13/19 13:17 Pulse Ox 97 04/13/19 13:17 Orders, Labs, Meds: Laboratory Tests 01/08/20 01/08/20 01/08/20 Range/Units 13:12 13:12 13:14 WBC 8.96 (4.0-11.0) K/uL RBC 4.21 L (4.50-5.90) M/uL Hgb 13.4 (13.0-17.0) g/dL Hct 39.4 (38.0-50.0) % MCV 93.6 (80.0-98.0) fL MCH 31.8 (27.0-32.0) pg MCHC 34.0 (31.0-37.0) g/dL RDW Std Deviation 45.8 (28.0-62.0) fl RDW Coeff of Malena 13 (11.0-15.0) % Plt Count 340 (150-400) K/uL MPV 9.60 (7.40-12.00) fL Neut % (Auto) 67.6 (48.0-80.0) % Lymph % (Auto) 15.5 L (16.0-40.0) % [place] % (Auto) 16.1 H (0.0-15.0) % Eos % (Auto) 0.6 (0.0-7.0) % Baso % (Auto) 0.2 (0.0-1.5) % Neut # (Auto) 6.1 H (1.4-5.7) K/uL Lymph # (Auto) 1.4 (0.6-2.4) K/uL [place] # (Auto) 1.4 H (0.0-0.8) K/uL Eos # (Auto) 0.1 (0.0-0.7) K/uL Baso # (Auto) 0.0 (0.0-0.1) K/uL Nucleated RBC % 0.0 /100WBC Nucleated RBCs # 0 K/uL Sodium (136-148) mmol/L Potassium (3.5-5.1) mmol/L Chloride (98-107) mmol/L Carbon Dioxide (21.0-32.0) mmol/L BUN (7.0-18.0) mg/dL Creatinine (0.8-1.3) mg/dL Est Cr Clr Drug Dosing mL/min Estimated GFR (MDRD) ml/min Glucose (74-106) mg/dL Calcium (8.5-10.1) mg/dL Total Bilirubin (0.2-1.0) mg/dL AST (15-37) IU/L ALT (14-63) IU/L Alkaline Phosphatase (46-116) U/L Ammonia (19-54) ug/dL Total Protein (6.4-8.2) g/dL Albumin (3.4-5.0) g/dL Globulin (2.6-4.0) g/dL Albumin/Globulin Ratio (0.9-1.6) Urine Color YELLOW Urine Appearance CLEAR Urine pH 6.5 (5.0-8.0) Ur Specific [place] 1.015 (1.001-1.035) Urine Protein NEGATIVE (NEGATIVE) mg/dL Urine Glucose (UA) NEGATIVE (NEGATIVE) mg/dL Urine Ketones 15 H (NEGATIVE) mg/dL Urine Occult Blood NEGATIVE (NEGATIVE) Urine Nitrite NEGATIVE (NEGATIVE) Urine Bilirubin NEGATIVE (NEGATIVE) Urine Urobilinogen 1.0 (<2.0) EU/dL Ur Leukocyte Esterase NEGATIVE (NEGATIVE) Urine Opiates Screen NEGATIVE (NEGATIVE) Ur Oxycodone Screen NEGATIVE (NEGATIVE) Urine Methadone Screen NEGATIVE (NEGATIVE) Ur Barbiturates Screen NEGATIVE (NEGATIVE) Ur Phencyclidine Scrn NEGATIVE (NEGATIVE) Ur Amphetamine Screen NEGATIVE (NEGATIVE) U Methamphetamines Scrn NEGATIVE (NEGATIVE) U Benzodiazepines Scrn NEGATIVE (NEGATIVE) U Cocaine Metab Screen NEGATIVE (NEGATIVE) U Marijuana (THC) Screen NEGATIVE (NEGATIVE) Ethyl Alcohol mg/dL 04/13/19 04/13/19 Range/Units 13:14 13:14 WBC (4.0-11.0) K/uL RBC (4.50-5.90) M/uL Hgb (13.0-17.0) g/dL Hct (38.0-50.0) % MCV (80.0-98.0) fL MCH (27.0-32.0) pg MCHC (31.0-37.0) g/dL RDW Std Deviation (28.0-62.0) fl RDW Coeff of Malena (11.0-15.0) % Plt Count (150-400) K/uL MPV (7.40-12.00) fL Neut % (Auto) (48.0-80.0) % Lymph % (Auto) (16.0-40.0) % [place] % (Auto) (0.0-15.0) % Eos % (Auto) (0.0-7.0) % Baso % (Auto) (0.0-1.5) % Neut # (Auto) (1.4-5.7) K/uL Lymph # (Auto) (0.6-2.4) K/uL [place] # (Auto) (0.0-0.8) K/uL Eos # (Auto) (0.0-0.7) K/uL Baso # (Auto) (0.0-0.1) K/uL Nucleated RBC % /100WBC Nucleated RBCs # K/uL Sodium 137 (136-148) mmol/L Potassium 3.0 L (3.5-5.1) mmol/L Chloride 97 L (98-107) mmol/L Carbon Dioxide 26.1 (21.0-32.0) mmol/L BUN 16 (7.0-18.0) mg/dL Creatinine 0.9 (0.8-1.3) mg/dL Est Cr Clr Drug Dosing 101.71 mL/min Estimated GFR (MDRD) > 60.0 ml/min Glucose 91 (74-106) mg/dL Calcium 9.0 (8.5-10.1) mg/dL Total Bilirubin 0.9 (0.2-1.0) mg/dL AST 22 (15-37) IU/L ALT 18 (14-63) IU/L Alkaline Phosphatase 103 (46-116) U/L Ammonia 29 (19-54) ug/dL Total Protein 7.0 (6.4-8.2) g/dL Albumin 3.1 L (3.4-5.0) g/dL Globulin 3.9 (2.6-4.0) g/dL Albumin/Globulin Ratio 0.8 L (0.9-1.6) Urine Color Urine Appearance Urine pH (5.0-8.0) Ur Specific [place] (1.001-1.035) Urine Protein (NEGATIVE) mg/dL Urine Glucose (UA) (NEGATIVE) mg/dL Urine Ketones (NEGATIVE) mg/dL Urine Occult Blood (NEGATIVE) Urine Nitrite (NEGATIVE) Urine Bilirubin (NEGATIVE) Urine Urobilinogen (<2.0) EU/dL Ur Leukocyte Esterase (NEGATIVE) Urine Opiates Screen (NEGATIVE) Ur Oxycodone Screen (NEGATIVE) Urine Methadone Screen (NEGATIVE) Ur Barbiturates Screen (NEGATIVE) Ur Phencyclidine Scrn (NEGATIVE) Ur Amphetamine Screen (NEGATIVE) U Methamphetamines Scrn (NEGATIVE) U Benzodiazepines Scrn (NEGATIVE) U Cocaine Metab Screen (NEGATIVE) U Marijuana (THC) Screen (NEGATIVE) Ethyl Alcohol < 3.0 mg/dL Medications Discontinued Medications Generic Name Dose Route Start Last Admin Trade Name Freq PRN Reason Stop Dose Admin Acetaminophen 650 mg 04/13/19 13:57 04/13/19 14:11 Tylenol PO 04/13/19 13:58 650 mg NOW ONE Administration Potassium Chloride 60 meq 04/13/19 14:04 04/13/19 14:11 Potassium Chloride PO 04/13/19 14:05 60 meq ONETIME ONE Administration Departure - Departure Time of Disposition: 14:57 Disposition: Home, Self-Care 01 Clinical Impression: Hallucinations - Discharge Information Instructions: Psychosis Referrals: Addi Carey MD [Primary Care Provider] - Forms: ED Department Discharge Additional Instructions: The following information is given to patients seen in the emergency department who are being discharged to home. This information is to outline your options for follow-up care. We provide all patients seen in our emergency department with a follow-up referral. The need for follow-up, as well as the timing and circumstances, are variable depending upon the specifics of your emergency department visit. If you don't have a primary care physician on staff, we will provide you with a referral. We always advise you to contact your personal physician following an emergency department visit to inform them of the circumstance of the visit and for follow-up with them and/or the need for any referrals to a consulting specialist. The emergency department will also refer you to a specialist when appropriate. This referral assures that you have the opportunity for follow-up care with a specialist. All of these measure are taken in an effort to provide you with optimal care, which includes your follow-up. Under all circumstances we always encourage you to contact your private physician who remains a resource for coordinating your care. When calling for follow-up care, please make the office aware that this follow-up is from your recent emergency room visit. If for any reason you are refused follow-up, please contact the [facility] Emergency Department at and asked to speak to the emergency department charge nurse. Sepsis Event Note - Evaluation Sepsis Screening Result: No Definite Risk - Focused Exam Vital Signs: Vital Signs Temp Pulse Resp BP Pulse Ox 04/13/19 13:17 102 H 124/90 97 04/13/19 11:59 36.5 C 99 20 125/86 97 Date Exam was Performed: 04/13/19 Time Exam was Performed: 16:07
== END 2019-04-13 15:26 | disposition home or self-care (01) ==
LOC: MW.ED 11:40
DX: R44.0 Auditory hallucinations (principal); R44.1 Visual hallucinations; R44.2 Other hallucinations; I10 Essential (primary) hypertension; E78.00 Pure hypercholesterolemia, unspecified; I48.91 Unspecified atrial fibrillation; Z79.01 Long term (current) use of anticoagulants; Z79.899 Other long term (current) drug therapy; Z88.2 Allergy status to sulfonamides; Z87.891 Personal history of nicotine dependence
CPT/HCPCS: 36415; 70450; 80053; 80305; 80320; 81003; 82140; 85025; 99285; A9270; G0480

== ENCOUNTER 2019-04-14 01:22 | Inpatient (IN) | payer BC ==
[2019-04-14] MEDS ORDERED: Ketorolac 30 MG/ML SDV IM ONE (01:32)
[2019-04-14 02:11] LABS: BLOOD UREA NITROGEN,BUN 19 mg/dL (7.0-18.0); CARBON DIOXIDE,CO2 27.3 mmol/L (21.0-32.0); CHLORIDE,CL 99 mmol/L (98-107); GLUCOSE RANDOM 102 mg/dL (74-106); POTASSIUM,K 3.7 mmol/L (3.5-5.1); SODIUM,NA 138 mmol/L (136-148)
--- NOTE | 2019-04-14 03:28 | EDM.PDOC ---
ED HPI GENERAL MEDICAL PROBLEM - General Chief Complaint: Behavioral/Psych Stated Complaint: MENTAL HEALTH Time Seen by Provider: 04/14/19 01:30 Source of Information: Reports: Patient History Limitations: Reports: No Limitations - History of Present Illness INITIAL COMMENTS - FREE TEXT/NARRATIVE: Has been hallucinating seeing things that are not there. thinks it might be a medication reaction Onset: Today Duration: Day(s): Location: Reports: Head Quality: Reports: Ache Severity: Moderate Associated Symptoms: Reports: No Other Symptoms, Confusion - Related Data Allergies Allergy/AdvReac Type Severity Reaction Status Date / Time No Known Allergies Allergy Verified 04/14/19 01:29 Home Meds: Home Meds atorvaSTATin [Lipitor] 20 mg PO DAILY 07/05/15 [History] Aspirin [[place] Aspirin EC] 81 mg PO DAILY 02/19/17 [History] Triamterene/Hydrochlorothiazid [Triamterene-HCTZ 37.5-25 MG] 1 tab PO DAILY [History] Amiodarone [Cordarone] 200 mg PO BID 04/05/19 [History] Apixaban [Eliquis] 5 mg PO BID 04/05/19 [History] Famotidine [Pepcid] 40 mg PO DAILY tablet 04/05/19 [Rx] Metoprolol Tartrate 50 mg PO BID 04/05/19 [History] amLODIPine Besylate/Benazepril [Amlodipine-Benazepril 10-20 mg] 1 each PO DAILY 04/05/19 [History] Benazepril [Lotensin] 20 mg PO DAILY tablet 04/07/19 [Rx] HCTZ/Triamterene [Maxzide 25-37.5 MG] 1 each PO DAILY tablet 04/07/19 [Rx] amLODIPine [Norvasc] 10 mg PO DAILY tablet 04/07/19 [Rx] traMADol [Ultram] 100 mg PO Q6H PRN #60 tablet 04/07/19 [Rx] Hydrocodone/Acetaminophen [Hydrocodon-Acetaminophen 5-325] 1 tab PO Q6HR [History] Past Medical History - Past Health History Medical/Surgical History: Denies Medical/Surgical History HEENT History: Reports: None Cardiovascular History: Reports: Afib, High Cholesterol, Hypertension Respiratory History: Reports: None Gastrointestinal History: Reports: Other (See Below) Genitourinary History: Reports: None Musculoskeletal History: Reports: Arthritis, Other (See Below) Other Musculoskeletal History: shoulder and knee arthitis Neurological History: Reports: None Psychiatric History: Reports: None Endocrine/Metabolic History: Reports: Obesity/BMI 30+ Hematologic History: Reports: Blood Transfusion(s) Immunologic History: Reports: None Oncologic (Cancer) History: Reports: Other (See Below) Other Oncologic History: precancerous skin Dermatologic History: Reports: Other (See Below) Other Dermatologic History: suspicious mole removal - Infectious Disease History Infectious Disease History: Reports: Chicken Pox - Past Surgical History Head Surgeries/Procedures: Reports: None HEENT Surgical History: Reports: LASIK GI Surgical History: Reports: Bariatric Procedure Other GI Surgeries/Procedures: takes prilosec OTC due to having gastric bypass Musculoskeletal Surgical History: Reports: Hip Replacement, Knee Replacement, Shoulder Surgery Dermatological Surgical History: Reports: Skin Biopsy Social & Family History - Family History Family Medical History: Noncontributory Endocrine/Metabolic: Reports: Diabetes, type II Other Endocrine/Metabolic Family History: Maternal side of celia family Oncologic: Reports: Lung Other Oncologic Family History: Paternal - Caffeine Use Caffeine Use: Reports: None ED ROS GENERAL - Review of Systems Review Of Systems: Comprehensive ROS is negative, except as noted in HPI. Constitutional: Reports: No Symptoms HEENT: Reports: No Symptoms Respiratory: Reports: No Symptoms Cardiovascular: Reports: No Symptoms Endocrine: Reports: No Symptoms GI/Abdominal: Reports: No Symptoms : Reports: No Symptoms Musculoskeletal: Reports: No Symptoms Skin: Reports: No Symptoms Neurological: Reports: Confusion Psychiatric: Reports: Anxiety, Confusion Hematologic/Lymphatic: Reports: No Symptoms Immunologic: Reports: No Symptoms - Physical Exam Exam: See Below Exam Limited By: No Limitations General Appearance: Alert, WD/WN, No Apparent Distress Eye Exam: Bilateral Eye: Normal Fundi, Normal Inspection, PERRL Ears: Normal External Exam, Normal Canal, Hearing Grossly Normal Nose: Normal Inspection, Normal Mucosa Throat/Mouth: Normal Inspection, Normal Lips, Normal Teeth Head Exam: Atraumatic, Normocephalic Neck: Normal Inspection, Supple, Non-Tender Respiratory/Chest: No Respiratory Distress, Lungs Clear Cardiovascular: Normal Peripheral Pulses, Regular Rate, Rhythm GI/Abdominal: Normal Bowel Sounds, Soft, Non-Tender, No Distention, No Abnormal Bruit. No: Distended, Hernia (Male) Exam: No Hernia, Normal Inspection, Normal Prostate, Deferred Course - Vital Signs Text/Narrative:: -63 year-old male presents to the emergency room chief complaint of hallucinating and seeing and hearing things. Patient has been on multiple narcotics including Tramadol , Flexeril, [place], hydrocodone, disease medications attributed to his hallucinations. Patient will be admitted to the observation unit and stripped of all these medications and placed only on Tylenol for pain Departure - Departure Time of Disposition: 03:33 Disposition: Refer to Observation Condition: Good Clinical Impression: Drug reaction resulting in brief psychotic states, Hallucinations - Discharge Information Referrals: PCP,None [Primary Care Provider] -
[2019-04-14] MEDS ORDERED: Acetaminophen 500 MG Tab PO PRN (04:43)
[2019-04-14] MEDS ORDERED: Lidocaine 5% 700 MG Patch TOP SCH (04:45)
[2019-04-14] MEDS ORDERED: Acetaminophen 325 MG Tab PO PRN (04:58)
[2019-04-14] MEDS ORDERED: Metoprolol Tartrate 50 MG Tab ONE (06:56)
--- NOTE | 2019-04-14 07:59 | PCM.HP.2 ---
H&P History of Present Illness - General Date of Service: 04/14/19 Admit Problem/Dx: Admission Diagnosis/Problem Admission Diagnosis/Problem Altered mental status Source of Information: Patient History Limitations: Reports: No Limitations - History of Present Illness Initial Comments - Free Text/Narative: This 63 year old male with pmh of newly diagnosed afib on Eliquis and recent femur fracture treated with conservative treatment with pain management presented to the ED last evening with his . He previously was in the ED yesterday afternoon with concerns of auditory, visual, and tactile hallucinations and bizarre behavior. He was been treated for pain with Flexeril , [place] and Tramadol. They report the odd behavior started a few days ago but has slowly progress. History was initially obtained from Rustam, but later after his arrived more information was provided. They deny fevers, chills neck pain. No chest pain or SOB. No focal neurologic deficits. He does report he drink 4-5 days a week 3-5 glasses of wine per day. Denies history of withdrawal or seizures. In the ED labwork WNL, Head CT negative. He was admitted for possible reaction to narcotics. Stripped of all narcotics and given only tylenol for pain. Once came I did speak with her and her concern was with alcohol related concerns as she feels he likely drinks more but was not able to quantify a number. Daughter in law at beside agrees with this as well. Confirms last drink was 04/05/2020. left leg Pain Score (Numeric/FACES): 7 - Related Data Allergies/Adverse Reactions: Allergies Allergy/AdvReac Type Severity Reaction Status Date / Time No Known Allergies Allergy Verified 04/14/19 01:29 Home Medications: Home Meds atorvaSTATin [Lipitor] 20 mg PO DAILY 07/05/15 [History] Aspirin [[place] Aspirin EC] 81 mg PO DAILY 02/19/17 [History] Triamterene/Hydrochlorothiazid [Triamterene-HCTZ 37.5-25 MG] 1 tab PO DAILY [History] Amiodarone [Cordarone] 200 mg PO BID 04/05/19 [History] Apixaban [Eliquis] 5 mg PO BID 04/05/19 [History] Famotidine [Pepcid] 40 mg PO DAILY tablet 04/05/19 [Rx] Metoprolol Tartrate 50 mg PO BID 04/05/19 [History] amLODIPine Besylate/Benazepril [Amlodipine-Benazepril 10-20 mg] 1 each PO DAILY 04/05/19 [History] Benazepril [Lotensin] 20 mg PO DAILY tablet 04/07/19 [Rx] HCTZ/Triamterene [Maxzide 25-37.5 MG] 1 each PO DAILY tablet 04/07/19 [Rx] amLODIPine [Norvasc] 10 mg PO DAILY tablet 04/07/19 [Rx] traMADol [Ultram] 100 mg PO Q6H PRN #60 tablet 04/07/19 [Rx] Hydrocodone/Acetaminophen [Hydrocodon-Acetaminophen 5-325] 1 tab PO Q6HR [History] Past Medical History - Past Health History Medical/Surgical History: Denies Medical/Surgical History HEENT History: Reports: None Cardiovascular History: Reports: Afib, High Cholesterol, Hypertension Respiratory History: Reports: None Gastrointestinal History: Reports: Other (See Below) Genitourinary History: Reports: None Musculoskeletal History: Reports: Arthritis, Other (See Below) Other Musculoskeletal History: shoulder and knee arthitis Neurological History: Reports: None Psychiatric History: Reports: None Endocrine/Metabolic History: Reports: Obesity/BMI 30+ 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 Hematologic History: Reports: Blood Transfusion(s) Immunologic History: Reports: None Oncologic (Cancer) History: Reports: Other (See Below) Other Oncologic History: precancerous skin Dermatologic History: Reports: Other (See Below) Other Dermatologic History: suspicious mole removal - Infectious Disease History Infectious Disease History: Reports: Chicken Pox - Past Surgical History Head Surgeries/Procedures: Reports: None HEENT Surgical History: Reports: LASIK GI Surgical History: Reports: Bariatric Procedure Other GI Surgeries/Procedures: takes prilosec OTC due to having gastric bypass Musculoskeletal Surgical History: Reports: Hip Replacement, Knee Replacement, Shoulder Surgery Dermatological Surgical History: Reports: Skin Biopsy Social & Family History - Family History Family Medical History: Noncontributory Endocrine/Metabolic: Reports: Diabetes, type II Other Endocrine/Metabolic Family History: Maternal side of celia family Oncologic: Reports: Lung Other Oncologic Family History: Paternal - Tobacco Use Smoking Status *Q: Former Smoker Years of Tobacco use: 40 Used Tobacco, but Quit: Yes Month/Year Tobacco Last Used: 2019 Tobacco Use Comment: patient quit smoking a 6 months ago. Second Hand Smoke Exposure: No - Caffeine Use Caffeine Use: Reports: None - Recreational Drug Use Recreational Drug Use: No H&P Review of Systems - Review of Systems: Review Of Systems: See Below General: Reports: No Symptoms. Denies: Fever, Chills, Malaise HEENT: Reports: No Symptoms Pulmonary: Reports: No Symptoms. Denies: Shortness of Breath Cardiovascular: Reports: No Symptoms. Denies: Chest Pain, Edema, Syncope Gastrointestinal: Reports: No Symptoms. Denies: Abdominal Pain, Black Stool, Bloody Stool, Nausea, Vomiting Skin: Reports: No Symptoms Psychiatric: Reports: Confusion, Hallucinations, Hallucinations (Auditory), Hallucinations (Visual) Hematologic/Lymphatic: Reports: No Symptoms Immunologic: Reports: No Symptoms Exam - Exam Exam: See Below - Vital Signs Vital Signs: Last Vital Signs Temp 97.9 F 04/14/19 04:00 Pulse 120 H 04/14/19 07:02 Resp 17 04/14/19 04:00 BP 133/17 L 04/14/19 07:02 Pulse Ox 98 04/14/19 04:00 Weight: 141.067 kg - Exam General: Alert, Oriented, Cooperative Neck: Supple Lungs: Clear to Auscultation, Normal Respiratory Effort Cardiovascular: Regular Rate, Irregular Rhythm GI/Abdominal Exam: Normal Bowel Sounds, Soft, Non-Tender Extremities: Normal Inspection, Normal Range of Motion, Pedal Edema (scant edema to LLE) Neurological: Cranial Nerves Intact Neuro Extensive - Mental Status: Alert, Oriented x3, Other (reports seeing and hearing things that are not there. NOted to have some confusion, but is alert and oreinted.) Neuro Extensive - Motor, Sensory, Reflexes: CN II-XII Intact Psychiatric: Hallucinations, Withdrawal Symptoms - Patient Data Lab Results Last 24 hrs: Laboratory Results - last 24 hr 04/14/19 04/14/19 04/14/19 Range/Units 01:42 01:42 01:42 WBC 9.16 (4.0-11.0) K/uL RBC 4.24 L (4.50-5.90) M/uL Hgb 13.6 (13.0-17.0) g/dL Hct 39.8 (38.0-50.0) % MCV 93.9 (80.0-98.0) fL MCH 32.1 H (27.0-32.0) pg MCHC 34.2 (31.0-37.0) g/dL RDW Std Deviation 46.2 (28.0-62.0) fl RDW Coeff of Malena 14 (11.0-15.0) % Plt Count 335 (150-400) K/uL MPV 9.10 (7.40-12.00) fL Neut % (Auto) 68.3 (48.0-80.0) % Lymph % (Auto) 23.3 (16.0-40.0) % [place] % (Auto) 7.3 (0.0-15.0) % Eos % (Auto) 0.8 (0.0-7.0) % Baso % (Auto) 0.3 (0.0-1.5) % Neut # (Auto) 6.3 H (1.4-5.7) K/uL Lymph # (Auto) 2.1 (0.6-2.4) K/uL Craven # (Auto) 0.7 (0.0-0.8) K/uL Eos # (Auto) 0.1 (0.0-0.7) K/uL Baso # (Auto) 0.0 (0.0-0.1) K/uL Nucleated RBC % 0.0 /100WBC Nucleated RBCs # 0 K/uL Sodium 138 (136-148) mmol/L Potassium 3.7 (3.5-5.1) mmol/L Chloride 99 (98-107) mmol/L Carbon Dioxide 27.3 (21.0-32.0) mmol/L BUN 19 H (7.0-18.0) mg/dL Creatinine 0.9 (0.8-1.3) mg/dL Est Cr Clr Drug Dosing 101.71 mL/min Estimated GFR (MDRD) > 60.0 ml/min Glucose 102 (74-106) mg/dL Calcium 9.2 (8.5-10.1) mg/dL Total Bilirubin 0.9 (0.2-1.0) mg/dL AST 20 (15-37) IU/L ALT 18 (14-63) IU/L Alkaline Phosphatase 105 (46-116) U/L Ammonia < 17 L (19-54) ug/dL Total Protein 7.2 (6.4-8.2) g/dL Albumin 3.1 L (3.4-5.0) g/dL Globulin 4.1 H (2.6-4.0) g/dL Albumin/Globulin Ratio 0.8 L (0.9-1.6) Urine Color Urine Appearance Urine pH (5.0-8.0) Ur Specific [place] (1.001-1.035) Urine Protein (NEGATIVE) mg/dL Urine Glucose (UA) (NEGATIVE) mg/dL Urine Ketones (NEGATIVE) mg/dL Urine Occult Blood (NEGATIVE) Urine Nitrite (NEGATIVE) Urine Bilirubin (NEGATIVE) Urine Ictotest Urine Urobilinogen (<2.0) EU/dL Ur Leukocyte Esterase (NEGATIVE) 04/14/19 Range/Units 02:00 WBC (4.0-11.0) K/uL RBC (4.50-5.90) M/uL Hgb (13.0-17.0) g/dL Hct (38.0-50.0) % MCV (80.0-98.0) fL MCH (27.0-32.0) pg MCHC (31.0-37.0) g/dL RDW Std Deviation (28.0-62.0) fl RDW Coeff of Malena (11.0-15.0) % Plt Count (150-400) K/uL MPV (7.40-12.00) fL Neut % (Auto) (48.0-80.0) % Lymph % (Auto) (16.0-40.0) % [place] % (Auto) (0.0-15.0) % Eos % (Auto) (0.0-7.0) % Baso % (Auto) (0.0-1.5) % Neut # (Auto) (1.4-5.7) K/uL Lymph # (Auto) (0.6-2.4) K/uL [place] # (Auto) (0.0-0.8) K/uL Eos # (Auto) (0.0-0.7) K/uL Baso # (Auto) (0.0-0.1) K/uL Nucleated RBC % /100WBC Nucleated RBCs # K/uL Sodium (136-148) mmol/L Potassium (3.5-5.1) mmol/L Chloride (98-107) mmol/L Carbon Dioxide (21.0-32.0) mmol/L BUN (7.0-18.0) mg/dL Creatinine (0.8-1.3) mg/dL Est Cr Clr Drug Dosing mL/min Estimated GFR (MDRD) ml/min Glucose (74-106) mg/dL Calcium (8.5-10.1) mg/dL Total Bilirubin (0.2-1.0) mg/dL AST (15-37) IU/L ALT (14-63) IU/L Alkaline Phosphatase (46-116) U/L Ammonia (19-54) ug/dL Total Protein (6.4-8.2) g/dL Albumin (3.4-5.0) g/dL Globulin (2.6-4.0) g/dL Albumin/Globulin Ratio (0.9-1.6) Urine Color YELLOW Urine Appearance CLEAR Urine pH 6.0 (5.0-8.0) Ur Specific [place] 1.020 (1.001-1.035) Urine Protein NEGATIVE (NEGATIVE) mg/dL Urine Glucose (UA) NEGATIVE (NEGATIVE) mg/dL Urine Ketones 15 H (NEGATIVE) mg/dL Urine Occult Blood NEGATIVE (NEGATIVE) Urine Nitrite NEGATIVE (NEGATIVE) Urine Bilirubin SMALL H (NEGATIVE) Urine Ictotest NEGATIVE Urine Urobilinogen 1.0 (<2.0) EU/dL Ur Leukocyte Esterase NEGATIVE (NEGATIVE) Result Diagrams: 04/14/19 01:42 04/14/19 01:42 Sepsis Event Note - Evaluation Sepsis Screening Result: No Definite Risk - Focused Exam Vital Signs: Vital Signs Temp Pulse Pulse Resp BP BP Pulse Ox 04/14/19 07:02 120 H 133/17 L 04/14/19 04:00 97.9 F 105 H 17 112/75 98 04/14/19 03:30 100 18 127/84 96 04/14/19 02:37 97.1 F 98 18 122/88 98 04/14/19 01:25 97.5 F 112 H 18 124/77 97 Date Exam was Performed: 04/14/19 Time Exam was Performed: 17:57 - Problem List (1) Alcohol withdrawal delirium SNOMED Code(s): 9874112 ICD Code: F10.231 - ALCOHOL DEPENDENCE WITH WITHDRAWAL DELIRIUM Status: Acute Current Visit: Yes Problem List Initiated/Reviewed/Updated: Yes Orders Last 24hrs: Active Orders 24 hr Category Date Time Status Patient Status [ADT] Stat ADT 04/14/19 03:35 Active Telemetry Monitoring [Cardiac Monitoring] [RC] Q8H Care 04/14/19 04:44 Active Vital Signs [RC] Q4H Care 04/14/19 04:48 Active Heart Healthy Diet [DIET] Diet 04/14/19 Breakfast Active Acetaminophen [Tylenol] Med 04/14/19 04:58 Active 650 mg PO Q6H PRN Amiodarone [Cordarone] Med 04/14/19 09:00 Active 200 mg PO BID Apixaban [Eliquis] Med 04/14/19 09:00 Active 5 mg PO BID Aspirin [Halfprin] Med 04/14/19 09:00 Active 81 mg PO DAILY Lidocaine 5% [Lidoderm 5%] Med 04/14/19 04:45 Active 700 mg TOP Q24H Metoprolol Tartrate [Lopressor] Med 04/14/19 09:00 Active 50 mg PO BID Medication Orders Acetaminophen (Tylenol) 650 mg PO Q6H PRN PRN Reason: Pain Amiodarone HCl (Cordarone) 200 mg PO BID SANDRA Apixaban (Eliquis) 5 mg PO BID SANDRA Aspirin (Halfprin) 81 mg PO DAILY SANDRA Lidocaine (Lidoderm 5%) 700 mg TOP Q24H [facility] Last Admin: 04/14/19 05:32 Dose: 700 mg Metoprolol Tartrate (Lopressor) 50 mg PO BID [facility] Assessment/Plan Comment:: THis 63 year old male admited with hallucincations, concerned for alcohol withdrawal vs medication reaction 1. Alcohol withdrawal: CIWAA protocol with Ativan. Thiamine folic acid supplementation. Monitor for worsening. 2. Femur fracture: Hold all narcotics. Tylenol for pain 3. Afib: Continue Metoprolol and Amiodarone as well as Eliquis. VTE prophylaxis: Eliquis Dispo: 1-2 days pending improvement.
[2019-04-14] MEDS ORDERED: Aspirin 81 MG Tab.EC PO SCH (09:00)
[2019-04-14] MEDS ORDERED: Amiodarone 200 MG Tab PO SCH (09:00)
[2019-04-14] MEDS ORDERED: Metoprolol Tartrate 50 MG Tab PO SCH (09:00)
[2019-04-14] MEDS ORDERED: Apixaban 5 MG Tab PO SCH (09:00)
[2019-04-14] MEDS: LORazepam 2 MG/ML SDV IVPUSH PRN ×2 (13:38→15:15)
[2019-04-14] MEDS ORDERED: LORazepam 2 MG/ML SDV IVPUSH PRN ×2 (15:57→16:47)
[2019-04-14] MEDS ORDERED: Folic Acid 50 MG/10 ML MDV SUBCUT SCH (16:45)
[2019-04-14] MEDS ORDERED: Thiamine 100 MG in Sodium Chloride 0.9% 100 ML IV SCH (16:45)
[2019-04-14] MEDS ORDERED: Haloperidol Lactate 5 MG/ML SDV IM ONE (16:53)
[2019-04-14] MEDS ORDERED: diphenhydrAMINE 50 MG/ML SDV IVPUSH ONE ×2 (16:53→16:57)
--- NOTE | 2019-04-14 16:56 | CT ---
Head CT Technique: Multiple axial sections through the brain were obtained. Intravenous contrast was not utilized. Comparison: Prior head CT study of 04/13/19. Findings: Motion artifact is noted on the base cuts. Within this limitation, ventricles along with basal cisterns and sulci over the convexities are mildly prominent. No abnormal parenchymal densities are appreciated. No evidence of intracranial hemorrhage. No midline shift or mass effect is seen. Bone window settings were reviewed which shows nothing acute within the visualized paranasal sinuses. Mastoid sinuses also show nothing acute. No acute calvarial abnormality is seen. Impression: 1. Motion artifact on the base cuts. 2. Generalized atrophy. 3. No acute intracranial abnormality is appreciated. Note: No significant change from prior head CT study is seen.
[2019-04-14] MEDS ORDERED: MVI, Adult with Vitamin K 10 ML, Thiamine 100 MG, Folic Acid 1 MG in Sodium Chloride 0.... IV ONE ×4 (17:05)
[2019-04-14] MEDS ORDERED: PHENobarbitaL sodium 260 MG in Sodium Chloride 0.9% 100 ML IV ONE (17:23)
[2019-04-14] MEDS: PHENobarbital Sodium 130 MG/ML SDV ONE ×4 (17:30→20:35)
[2019-04-14] MEDS ORDERED: Sodium Chloride 0.9% 1,000 ML IV ONE (18:05)
--- NOTE | 2019-04-14 18:09 | PN ---
THC Physician - Brief Progress [id number]/09/2020 17:11[facility] Sherrill Morelos, DOTTIE - ULICESN (DARBYN) - ULICESN GABRIELJERALD HANSONAniaDate of Service 04/14/2019 17:11HPI/Events o f Note EICU admission:64 year old male admitting to EICU for Drug withdrawl and psychosis.Patient dri nking a large amount of etoh with : tramadol, flexeril, norco, hydrocodone. Patient c/o active hallu cinations, and went actively psychotic on camera.Patient is calling out to people not arround him.Had one seizure in the ED.Will be loading Phenobarb and ValiumMonitoring airwayPatient is 63 year old ma le and obese, very psychotic and a risk to loved ones and himself.On camera with the nursing staff. Will control the patient's psychosis, and monitor airway closely.Loved one is at bedside with the jacqueline iglesias.Labs reviewed?? Tox screenMay need anti-epileptic medication.EICU assessment:TME with seizure di sorderLikely toradol OD vs ETOH withdrawlActive PsychosisRecent Femur fractureMorbid obesityEICU recs :D/W attending and NPIntubate patient for airway protectionPhenobarb loadPropofol and Keppra with PRN versedNG tube, restart eliquis and amiodaronePlace wall catheterStart protonixThiamine for ETOH mis useLikely transfer to center with Continuous EEG in am or sooner if stable.Interventions Major-Seizur es - evaluation and managementIntermediate-Communication with other healthcare providers and/or famil yMinor-Communication with other healthcare providers and/or family, Routine modifications to care thomas n (e.g. PRN medications for pain, fever)
--- NOTE | 2019-04-14 18:20 | PCM.SN ---
- Free Text/Narrative Note: approximately 1600: Rapid response called to Rustam's room. Patient alert but very confused tremulous and ataxic. Nursing reporting seizure activity and had given 2 mg Ativan. Patient incontinent of stool. Head CT stat ordered, negative for intracranial concerns. Patient transferred to ICU for further care. EICU given hand off on patient. Soft restraints ordered per EICU MD. Spoke with Malathi over the phone, updated on seizure and movement to the ICU. She was on her way. Patient then actively became delirious speaking to people not in the room. No further seizures. Given total of 6 mg Ativan as well as. 1700: arrived at bedside updated on situation and the need for further sedation due to likely delirium from alcohol withdrawal. Daughter along with her reports they hand feared he was drinking significantly more alcohol then he was reporting to family. Updated [facility] ICU ordering phenobarbital currently and monitoring patient closely for airway concerns.
--- NOTE | 2019-04-14 18:44 | PCM.SN ---
- Free Text/Narrative Note: Called to ICU for intubation of patient going through withdrawl. Uncontrolled tremors/?seizure type activity. VSS. SaO2 97%. Propofol 300mg slowly Rocuronium 100mg. Hyperventilated with abbu. SaO2 100%. ET with Avalos #3 and 8.0 tube under DV. 7ml air in cuff. BS=BS. CxR looks OK. Placed on vent. Propofol gtt started. Tolerated well. VSS SaO2 99%.
--- NOTE | 2019-04-14 18:50 | CR ---
Chest: Supine view of the chest was obtained. Comparison: No prior chest imaging. Endotracheal tube is seen. Tip lies at the mid-level of the clavicles. Heart size and mediastinum are normal. Lungs are clear with no acute parenchymal change. Right shoulder prosthesis is noted. Impression: 1. Tip of endotracheal tube at the mid level of clavicles. 2. Nothing acute is otherwise seen on frontal chest x-ray. Diagnostic code #2 This report was dictated in [place] Standard Time
[2019-04-14] MEDS ORDERED: Metoprolol Tartrate 5 MG in Sodium Chloride 0.9% 50 ML IV ONE (18:51)
[2019-04-14] MEDS ORDERED: Metoprolol Tartrate 5 MG/5 ML SDV ONE (18:53)
--- NOTE | 2019-04-14 18:55 | PCM.SN ---
- Free Text/Narrative Note: Patient had a seizure, received 2 mg Ativan, was transferred to ICU, patient started to get agitated and was having intermittent seizures as well, patient was chemically restrained with Haldol and Benadryl for severe agitation and was eventually started on phenobarbital gtt. Patient continued to be agitated and was having intermittent seizure like episodes. Decision was made to intubate and sedate the patient for seizure control and risk of aspiration PNA.
--- NOTE | 2019-04-14 18:57 | PCM.DCSUM1 ---
Discharge Summary - Hospital Course Free Text/Narrative:: This 63 year old male with pmh of newly diagnosed afib on Eliquis and recent femur fracture treated with conservative treatment with pain management presented to the ED last evening of 04/13 with his . He previously was in the ED on 04/12 with concerns of auditory, visual, and tactile hallucinations and bizarre behavior. He was been treated for pain with Flexeril, [place] and Tramadol. They report the odd behavior started a few days ago but has slowly progress. They deny fevers, chills neck pain. No chest pain or SOB. No focal neurologic deficits. He does report he drink 4-5 days a week 3-5 glasses of wine per day. Denied history of withdrawal or seizures. In the ED lab-work WNL, Head CT negative. He was admitted for possible adverse reaction to narcotics and muscle relaxants. Patient received 1 dose of Toradol in ER for pain control. Further history from reveled that patient is a heavy drinker, 3-4 wine glasses 5-6 days/week. Daughter in law at beside agreed with this as well. Confirms last drink was 04/05/2020. Patient was started on CIWA protocol for possible alcohol withdrawal. In afternoon patient had an episode of seizure, received Ativan, was transferred to ICU for care. Keppra was loaded as well. CT scan head was done which was negative for acute findings. Patient started to get agitated, was started chemically restrained for agitation with one dose of Haldol and Benadryl. Agitation didn't improve, so patient was started on phenobarbital gtt. Patient started to have intermittent seizure like activity every few minutes and decision was made to start propofol and intubate the patient to stop the seizures and airway protection. Patient is being transferred to [place] for further care including through Neuro work up and EEG. Patient received 1 dose of Lopressor for Afib RVR post intubation and HTN, HR improved to 100 and BP to 160/80. Patient is being flow to [place] for further care. - Discharge Data Discharge Date: 04/14/19 Discharge Disposition: DC/Tfer to Acute Hospital 02 Condition: Fair - Referral to Home Health Primary Care Physician: PCP None - Patient Summary/Data Consults: Consultations 04/14/19 10:35 PT Evaluation and Treatment [CONS] Routine 04/14/19 16:37 Consult to Physician [CONS] Routine - Discharge Plan Home Medications: Home Meds atorvaSTATin [Lipitor] 20 mg PO DAILY 07/05/15 [History] Aspirin [[place] Aspirin EC] 81 mg PO DAILY 02/19/17 [History] Triamterene/Hydrochlorothiazid [Triamterene-HCTZ 37.5-25 MG] 1 tab PO DAILY [History] Amiodarone [Cordarone] 200 mg PO BID 04/05/19 [History] Apixaban [Eliquis] 5 mg PO BID 04/05/19 [History] Famotidine [Pepcid] 40 mg PO DAILY tablet 04/05/19 [Rx] Metoprolol Tartrate 50 mg PO BID 04/05/19 [History] amLODIPine Besylate/Benazepril [Amlodipine-Benazepril 10-20 mg] 1 each PO DAILY 04/05/19 [History] Benazepril [Lotensin] 20 mg PO DAILY tablet 04/07/19 [Rx] HCTZ/Triamterene [Maxzide 25-37.5 MG] 1 each PO DAILY tablet 04/07/19 [Rx] amLODIPine [Norvasc] 10 mg PO DAILY tablet 04/07/19 [Rx] traMADol [Ultram] 100 mg PO Q6H PRN #60 tablet 04/07/19 [Rx] Hydrocodone/Acetaminophen [Hydrocodon-Acetaminophen 5-325] 1 tab PO Q6HR [History] Oxygen Therapy Mode: Mechanical Ventilation (intubated active seizures / halluciantions / combative) Forms: ED Department Discharge Referrals: Morgan Duffy MD [Physician] - 04/19/19 9:30 am - Discharge Summary/Plan Comment DC Time >30 min.: No - Patient Data Vitals - Most Recent: Last Vital Signs Temp 35.6 C 04/14/19 15:48 Pulse 146 H 04/14/19 15:48 Resp 20 04/14/19 15:48 BP 138/84 04/14/19 15:48 Pulse Ox 97 04/14/19 15:48 Weight - Most Recent: 141.067 kg I&O - Last 24 hours: Intake & Output 04/14/19 04/14/19 04/14/19 06:59 14:59 22:59 Intake Total 500 Balance 500 Lab Results - Last 24 hrs: Laboratory Results - last 24 hr 04/14/19 04/14/19 04/14/19 Range/Units 01:42 01:42 01:42 WBC 9.16 (4.0-11.0) K/uL RBC 4.24 L (4.50-5.90) M/uL Hgb 13.6 (13.0-17.0) g/dL Hct 39.8 (38.0-50.0) % MCV 93.9 (80.0-98.0) fL MCH 32.1 H (27.0-32.0) pg MCHC 34.2 (31.0-37.0) g/dL RDW Std Deviation 46.2 (28.0-62.0) fl RDW Coeff of [place] 14 (11.0-15.0) % Plt Count 335 (150-400) K/uL MPV 9.10 (7.40-12.00) fL Neut % (Auto) 68.3 (48.0-80.0) % Lymph % (Auto) 23.3 (16.0-40.0) % [place] % (Auto) 7.3 (0.0-15.0) % Eos % (Auto) 0.8 (0.0-7.0) % Baso % (Auto) 0.3 (0.0-1.5) % Neut # (Auto) 6.3 H (1.4-5.7) K/uL Lymph # (Auto) 2.1 (0.6-2.4) K/uL [place] # (Auto) 0.7 (0.0-0.8) K/uL Eos # (Auto) 0.1 (0.0-0.7) K/uL Baso # (Auto) 0.0 (0.0-0.1) K/uL Nucleated RBC % 0.0 /100WBC Nucleated RBCs # 0 K/uL Sodium 138 (136-148) mmol/L Potassium 3.7 (3.5-5.1) mmol/L Chloride 99 (98-107) mmol/L Carbon Dioxide 27.3 (21.0-32.0) mmol/L BUN 19 H (7.0-18.0) mg/dL Creatinine 0.9 (0.8-1.3) mg/dL Est Cr Clr Drug Dosing 101.71 mL/min Estimated GFR (MDRD) > 60.0 ml/min Glucose 102 (74-106) mg/dL POC Glucose (60-110) mg/dL Calcium 9.2 (8.5-10.1) mg/dL Total Bilirubin 0.9 (0.2-1.0) mg/dL AST 20 (15-37) IU/L ALT 18 (14-63) IU/L Alkaline Phosphatase 105 (46-116) U/L Ammonia < 17 L (19-54) ug/dL Total Protein 7.2 (6.4-8.2) g/dL Albumin 3.1 L (3.4-5.0) g/dL Globulin 4.1 H (2.6-4.0) g/dL Albumin/Globulin Ratio 0.8 L (0.9-1.6) Urine Color Urine Appearance Urine pH (5.0-8.0) Ur Specific [place] (1.001-1.035) Urine Protein (NEGATIVE) mg/dL Urine Glucose (UA) (NEGATIVE) mg/dL Urine Ketones (NEGATIVE) mg/dL Urine Occult Blood (NEGATIVE) Urine Nitrite (NEGATIVE) Urine Bilirubin (NEGATIVE) Urine Ictotest Urine Urobilinogen (<2.0) EU/dL Ur Leukocyte Esterase (NEGATIVE) 04/14/19 04/14/19 Range/Units 02:00 17:37 WBC (4.0-11.0) K/uL RBC (4.50-5.90) M/uL Hgb (13.0-17.0) g/dL Hct (38.0-50.0) % MCV (80.0-98.0) fL MCH (27.0-32.0) pg MCHC (31.0-37.0) g/dL RDW Std Deviation (28.0-62.0) fl RDW Coeff of [place] (11.0-15.0) % Plt Count (150-400) K/uL MPV (7.40-12.00) fL Neut % (Auto) (48.0-80.0) % Lymph % (Auto) (16.0-40.0) % [place] % (Auto) (0.0-15.0) % Eos % (Auto) (0.0-7.0) % Baso % (Auto) (0.0-1.5) % Neut # (Auto) (1.4-5.7) K/uL Lymph # (Auto) (0.6-2.4) K/uL [place] # (Auto) (0.0-0.8) K/uL Eos # (Auto) (0.0-0.7) K/uL Baso # (Auto) (0.0-0.1) K/uL Nucleated RBC % /100WBC Nucleated RBCs # K/uL Sodium (136-148) mmol/L Potassium (3.5-5.1) mmol/L Chloride (98-107) mmol/L Carbon Dioxide (21.0-32.0) mmol/L BUN (7.0-18.0) mg/dL Creatinine (0.8-1.3) mg/dL Est Cr Clr Drug Dosing mL/min Estimated GFR (MDRD) ml/min Glucose (74-106) mg/dL POC Glucose 88 (60-110) mg/dL Calcium (8.5-10.1) mg/dL Total Bilirubin (0.2-1.0) mg/dL AST (15-37) IU/L ALT (14-63) IU/L Alkaline Phosphatase (46-116) U/L Ammonia (19-54) ug/dL Total Protein (6.4-8.2) g/dL Albumin (3.4-5.0) g/dL Globulin (2.6-4.0) g/dL Albumin/Globulin Ratio (0.9-1.6) Urine Color YELLOW Urine Appearance CLEAR Urine pH 6.0 (5.0-8.0) Ur Specific [place] 1.020 (1.001-1.035) Urine Protein NEGATIVE (NEGATIVE) mg/dL Urine Glucose (UA) NEGATIVE (NEGATIVE) mg/dL Urine Ketones 15 H (NEGATIVE) mg/dL Urine Occult Blood NEGATIVE (NEGATIVE) Urine Nitrite NEGATIVE (NEGATIVE) Urine Bilirubin SMALL H (NEGATIVE) Urine Ictotest NEGATIVE Urine Urobilinogen 1.0 (<2.0) EU/dL Ur Leukocyte Esterase NEGATIVE (NEGATIVE) Med Orders - Current: Current Medications Acetaminophen (Tylenol) 650 mg PO Q6H PRN PRN Reason: Pain Last Admin: 04/14/19 13:39 Dose: 650 mg Amiodarone HCl (Cordarone) 200 mg PO BID [facility] Last Admin: 04/14/19 08:26 Dose: 200 mg Apixaban (Eliquis) 5 mg PO BID [facility] Last Admin: 04/14/19 08:26 Dose: 5 mg Aspirin (Halfprin) 81 mg PO DAILY [facility] Last Admin: 04/14/19 08:26 Dose: 81 mg Chlordiazepoxide HCl (Librium) 5 mg PO TID [facility] Last Admin: 04/14/19 18:32 Dose: Not Given Folic Acid (Folic Acid) 1 mg SUBCUT DAILY [facility] Thiamine HCl 100 mg/ Sodium (Chloride) 101 mls @ 202 mls/hr IV DAILY [facility] Multivitamins/Minerals 10 ml/Thiamine HCl 100 mg/ Folic Acid 1 mg/ Sodium Chloride 1,011.2 mls @ 150 mls/hr IV ONETIME ONE Stop: 04/14/19 23:49 Last Admin: 04/14/19 17:27 Dose: 150 mls/hr Sodium Chloride (Normal Saline) 1,000 mls @ 999 mls/hr IV .[place] ONE Stop: 04/14/19 19:05 Propofol (Diprivan 100 Ml) 100 mls @ 0.423 mls/hr IV TITRATE [facility]; Protocol Metoprolol Tartrate 5 mg/ (Sodium Chloride) 55 mls @ 100 mls/hr IV ONETIME ONE Stop: 04/14/19 19:23 Lidocaine (Lidoderm 5%) 700 mg TOP Q24H [facility] Last Admin: 04/14/19 05:32 Dose: 700 mg Lorazepam (Ativan) 2 mg IVPUSH Q1H PRN PRN Reason: Seizures Lorazepam (Ativan) 0 mg IVPUSH Q2H PRN; Protocol PRN Reason: CIWAA Metoprolol Tartrate (Lopressor) 50 mg PO BID [facility] Last Admin: 04/14/19 08:28 Dose: Not Given Discontinued Medications Acetaminophen (Tylenol Extra Strength) 650 mg PO Q6H PRN PRN Reason: Pain Diphenhydramine HCl (Benadryl) 25 mg IVPUSH ONETIME ONE Stop: 04/14/19 16:54 Diphenhydramine HCl (Benadryl) 50 mg IVPUSH ONETIME ONE Stop: 04/14/19 16:58 Haloperidol Lactate (Haldol) 5 mg IM ONETIME ONE Stop: 04/14/19 16:54 Last Admin: 04/14/19 17:32 Dose: 5 mg Phenobarbital 260 mg/ Sodium (Chloride) 102 mls @ 200 mls/hr IV ONETIME ONE Stop: 04/14/19 17:52 Last Admin: 04/14/19 17:40 Dose: 200 mls/hr Propofol (Diprivan 100 Ml) Confirm Administered Dose 100 mls @ as directed .ROUTE .STK-MED ONE Stop: 04/14/19 18:10 Ketorolac Tromethamine (Toradol) 30 mg IM ONETIME ONE Stop: 04/14/19 01:33 Last Admin: 04/14/19 01:41 Dose: 30 mg Lorazepam (Ativan) 0 mg IVPUSH Q4H PRN; Protocol PRN Reason: CIWAA Last Admin: 04/14/19 15:15 Dose: 2 mg Metoprolol Tartrate (Lopressor) Confirm Administered Dose 50 mg .ROUTE .STK-MED ONE Stop: 04/14/19 06:57 Last Admin: 04/14/19 07:02 Dose: 50 mg Phenobarbital (Phenobarbital Sodium) Confirm Administered Dose 130 mg .ROUTE .STK-MED ONE Stop: 04/14/19 17:23 Phenobarbital (Phenobarbital Sodium) Confirm Administered Dose 130 mg .ROUTE .STK-MED ONE Stop: 04/14/19 17:30
[2019-04-14] MEDS ORDERED: Metoprolol Tartrate 5 MG/5 ML SDV IVPUSH ONE (18:58)
[2019-04-14] MEDS ORDERED: Rocuronium 100 MG/10 ML MDV ONE (19:00)
[2019-04-14] MEDS ORDERED: fentaNYL 50 MCG/ML SDV IVPUSH ONE (19:04)
[2019-04-14] MEDS ORDERED: fentaNYL 100 MCG/2 ML SDV ONE (19:06)
[2019-04-14 20:28] VITALS: BP 163/91; PULSE 125
== END 2019-04-14 19:45 | DRG 775 ==
LOC: MW.ED 01:22 → MW.MS 03:35 → OBSVTOIN 16:01 → MW.ICU 16:37
PROVIDERS: ADMIT Student in an Organized Health Care Education/Training Program; ATTEND Student in an Organized Health Care Education/Training Program
PROC: 0BH17EZ Insertion of Endotracheal Airway into Trachea, Via Natural or Artificial Opening (ICD-10-PCS; principal; 2019-04-14)
DX: F10.231 Alcohol dependence with withdrawal delirium (principal); R56.9 Unspecified convulsions; R45.1 Restlessness and agitation; I48.91 Unspecified atrial fibrillation; E78.00 Pure hypercholesterolemia, unspecified; I10 Essential (primary) hypertension; M19.90 Unspecified osteoarthritis, unspecified site; R44.1 Visual hallucinations; R44.0 Auditory hallucinations; E66.9 Obesity, unspecified; Z96.649 Presence of unspecified artificial hip joint; Z96.659 Presence of unspecified artificial knee joint; T40.605A Adverse effect of unspecified narcotics, initial encounter; T48.205A Adverse effect of unspecified drugs acting on muscles, initial encounter; Z98.84 Bariatric surgery status; Z87.891 Personal history of nicotine dependence; Z79.01 Long term (current) use of anticoagulants; Z79.82 Long term (current) use of aspirin; Z79.899 Other long term (current) drug therapy; Z68.38 Body mass index [BMI] 38.0-38.9, adult
CPT/HCPCS: 36415; 36600; 51702; 70450; 70450-26; 71045; 71045-26; 80053; 81003; 82140; 82803; 82962; 85025; 97161-GP; A9270-GY; J1630; J1885; J2060; J2560; J2704; J3010; J3411; J3490; J7030; J7050